=== PATIENT | male | born 1945 | race Caucasian/White ===

== ENCOUNTER → 2022-03-29 14:56 | Outpatient (BNVA) | payer MEDICARE, SELFPAY | PROVIDERS: PCP Family Medicine; Visit Provider Psychiatry & Neurology Neurology | DX: G20 Parkinson's disease (principal); Z79.899 Other long term (current) drug therapy | CPT/HCPCS: 99202 ==

== ENCOUNTER → 2022-09-27 14:22 | Outpatient (BNVA) | payer MEDICARE, SELFPAY | PROVIDERS: PCP Family Medicine; Visit Provider Psychiatry & Neurology Neurology | DX: G20 Parkinson's disease (principal) | CPT/HCPCS: 99212 ==

== ENCOUNTER 2023-04-04 13:48 | Outpatient (AMB) | payer MEDICARE, SELFPAY ==
--- NOTE | 2023-04-04 14:12 | MHC.OFFVIS ---
Intake Vital Signs 04/04/23 14:13 Height 5 ft 11 in Weight 250 lb BMI 34.9 BP 132/70 Blood Pressure Location Rt brachial Position Sitting Respiration 16 Pulse 64 Pulse Source Pulse Oximeter Pulse Oximetry (%) 98 Oxygen Delivery Method Room Air Intake Visit Reasons: 6 mnth f/u - LVM Intake Note: Pt presents to the office for a 6 month follow up for Parkinson's disease. Veterinarian Epidemiologist Required: No Allergies aspirin Allergy (Mild, Verified 04/04/23 14:13) Unknown ibuprofen Allergy (Mild, Verified 04/04/23 14:13) Unknown Penicillins Allergy (Mild, Verified 04/04/23 14:13) Unknown Medication List - Last Reconciled 04/04/23 by Shruti Garza MD ascorbic acid (vitamin C) mg PO carbidopa-levodopa 25-100 mg 1 tab at 10am, 4pm, 2 tabs at 1pm 7pm 10 pm and 1 extra as needed in the middle of the night ( 3am) cholecalciferol (vitamin D3) 10 mcg PO DAILY rasagiline 1 mg PO DAILY 90 days trihexyphenidyl 2 mg PO DAILY 90 days HPI HPI Comments History of Present Illness Details 77y/o male right handed male with Parkinsons disease comes for follow up. he was doin well but recently noticed that his tremors increased at night. I added an extra tablet at 10 pm and extra as needed at 3 am He was diagnosed with parkinsons disease 8 years ago when he presented with right leg tremors No cognitive issues Sleep- once in a while he talks . Mood- anxious more often Motivation- good. He cleans , he exercises in his bike 20 minutes a day. He has drooling mostly at night Speech- softer No swallowing issues He is slower in using utensils He has difficulty dressing. He can shower and good with personal hygiene. He has trouble turning in bed- uses silk sheets Gait is slower and mild balance issues. No falls Bowel movements regular No dizziness No hallucinations No vertigo , diplopia PFSH Surgical History H/O: vasectomy H/O inguinal hernia repair H/O cataract extraction Family History Father Diabetes Social History (Reviewed 04/04/23 @ 14:17 by JONATHAN Mccormack Alcohol intake: current Alcohol intake frequency: a few times a week Patient Tobacco Use Status: Former Tobacco user Quit Date: 1994 Physical Exam Vital Signs: Last Vital Signs Pulse 64 04/04/23 14:13 Resp 16 04/04/23 14:13 BP 132/70 04/04/23 14:13 Pulse Ox 98 04/04/23 14:13 Oxygen Delivery Method Room Air 04/04/23 14:13 BMI result Body Mass Index 34.9 Const General: cooperative, healthy appearing and comfortable Nutritional Appearance: obese Orientation/consciousness: patient oriented x3 Eyes Pupils: Equal, round and reactive pupils present Neuro Other: No tremors today FFM and foot taps mildly decreased virgil R>L Head tilted to right Mild hypophonia Mild stoop, No arm swing on right, shorter stride on right General: patient oriented x3, tone normal and moves all extremities Cranial nerves: Yes CN's II-XII intact bilaterally, Yes Facial sensation intact/muscles of mastication intact, Yes Equal, round and reactive pupils present, Yes Bilaterally intact EOM present, Yes Nystagmus not present, Yes Normal facial strength present and Yes Symmetric palate elevation present Cognition (Neuro): normal cognition Motor exam (neuro): 5/5 motor strength present throughout Psych Appearance: grossly normal Mental Status: mental status grossly normal Assessment & Plan Assessment & Plan (1) Parkinson's disease: Comment: Tremor predominant Code(s): G20 - Parkinson's disease Plan sinemet 25/100 1tab at 10am,4pm 2tabs at 1pm and7pm , 10pm 1 extra tablet in the middle of the night rasagiline 1mg qd Trihexyphenidyl 2mg qam Suggested wedge pillow and a bed rail to help change positions . Orders: Orders PT Evaluation and Treatment Today G20 - Parkinson's disease Medications: Changed From carbidopa-levodopa 25-100 mg 1 tab at 10am, 4pm, 10pm 2 tabs at 1pm 7pm 630 tabs 3RF To carbidopa-levodopa 25-100 mg 1 tab at 10am, 4pm, 2 tabs at 1pm 7pm 10 pm and 1 extra as needed in the middle of the night ( 3am) 700 tabs 3RF Coding Level of Care Code Est Pt Level 4 (32933) Diagnoses Parkinson's disease G20
[2023-04-04 14:13] VITALS: BP 132/70; PULSE 64; RESP 16; O2SAT 98; BMI 34.9
== END 2023-04-04 14:55 | disposition home or self-care (01) ==
PROVIDERS: PCP Family Medicine; Visit Provider Psychiatry & Neurology Neurology
DX: G20.A1 Parkinson's disease without dyskinesia, without mention of fluctuations (principal)
CPT/HCPCS: 99214

== ENCOUNTER → 2023-04-04 13:48 | Outpatient (BNVA) | payer MEDICARE, SELFPAY | PROVIDERS: PCP Family Medicine; Visit Provider Psychiatry & Neurology Neurology | DX: G20.A1 Parkinson's disease without dyskinesia, without mention of fluctuations (principal) | CPT/HCPCS: 99212 ==

== ENCOUNTER 2023-10-03 15:19 | Outpatient (AMB) | payer MEDICARE, SELFPAY ==
--- NOTE | 2023-10-03 15:25 | MHC.OFFVIS ---
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 Required: No Allergies aspirin Allergy (Mild, Verified 10/03/23 15:26) Unknown ibuprofen Allergy (Mild, Verified 10/03/23 15:26) Unknown Penicillins Allergy (Mild, Verified 10/03/23 15:26) Unknown Medication List - Last Reconciled 10/03/23 by Shruti Garza MD ascorbic acid (vitamin C) mg PO carbidopa-levodopa 25-100 mg 1 tab at 10am, 4pm, 2 tabs at 1pm 7pm 10 pm and 1 extra as needed in the middle of the night ( 3am) cholecalciferol (vitamin D3) 10 mcg PO DAILY gabapentin 100 mg PO BEDTIME PRN rasagiline 1 mg PO DAILY 90 days trihexyphenidyl 2 mg PO DAILY 90 days HPI Comments Details: 78y/o male right handed male with Parkinsons disease comes for follow up.He had a fall and had right hip fracture 3 months ago and has hip placement.He is doing better now and uses walker at night . He did PT for hip and did well He was diagnosed with parkinsons disease 9 years ago when he presented with right leg tremors No cognitive issues Sleep- once in a while he talks . Mood- anxious more often Motivation- good. He cleans , he exercises in his bike 20 minutes a day. He has drooling mostly at night Speech- softer No swallowing issues He is slower in using utensils He has difficulty dressing. He can shower and good with personal hygiene. He has trouble turning in bed- uses silk sheets Gait is slower and mild balance issues. Bowel movements regular No dizziness No hallucinations No vertigo , diplopia [facility] Medical History (Updated 10/03/23 @ 15:59 by Shruti Garza MD) Parkinson's disease without dyskinesia Surgical History History of hip replacement H/O: vasectomy H/O inguinal hernia repair H/O cataract extraction Family History Father Diabetes Social History Alcohol intake: current Alcohol intake frequency: a few times a week Patient Tobacco Use Status: Former Tobacco user Physical Exam Vital Signs: Last Vital Signs Pulse 57 10/03/23 15:26 Resp 16 10/03/23 15:26 BP 136/72 10/03/23 15:26 Pulse Ox 97 10/03/23 15:26 Oxygen Delivery Method Room Air 10/03/23 15:26 BMI result Body Mass Index 35.1 Const General: cooperative, healthy appearing and comfortable Nutritional Appearance: obese Orientation/consciousness: patient oriented x3 Eyes Pupils: Equal, round and reactive pupils present Neuro Other: High Amplitude rest tremors in right hand FFM and foot taps mildly decreased virgil R>L Head tilted to right Mild hypophonia Mild stoop, No arm swing on right, shorter stride on right General: patient oriented x3, tone normal and moves all extremities Cranial nerves: Yes CN's II-XII intact bilaterally, Yes Facial sensation intact/muscles of mastication intact, Yes Equal, round and reactive pupils present, Yes Bilaterally intact EOM present, Yes Nystagmus not present, Yes Normal facial strength present and Yes Symmetric palate elevation present Cognition (Neuro): normal cognition Motor exam (neuro): 5/5 motor strength present throughout Psych Appearance: grossly normal Mental Status: mental status grossly normal Assessment & Plan Assessment & Plan (1) Parkinson's disease without dyskinesia: Code(s): G20.A1 - Parkinson's disease without dyskinesia, without mention of fluctuations Category: Medical Plan sinemet 25/100 1tab at 10am,4pm 2tabs at 1pm and7pm , 10pm 1 extra tablet in the middle of the night rasagiline 1mg qd Trihexyphenidyl 2mg 1/2 tab bid Gabapentin 100mg qhs Suggested wedge pillow and a bed rail to help change positions . PT for gait training Discussed about DBS Orders: Orders PT Evaluation and Treatment Today Shruti Garza MD G20 - Parkinson's disease Medications: Changed From gabapentin 100 mg PO BEDTIME 30 days 30 caps 1RF To gabapentin 100 mg PO BEDTIME PRN Grisel Acosta, [employer] Coding Level of Care Code Est Pt Level 4 (83011) Complex EM visit Add On G2211 Diagnoses Parkinson's disease without dyskinesia G20.A1
[2023-10-03 15:26] VITALS: BP 136/72; PULSE 57; RESP 16; O2SAT 97; BMI 35.1
== END 2023-10-03 16:15 | disposition home or self-care (01) ==
PROVIDERS: PCP Family Medicine; Visit Provider Psychiatry & Neurology Neurology
DX: G20.A1 Parkinson's disease without dyskinesia, without mention of fluctuations (principal)
CPT/HCPCS: 99214; G2211

== ENCOUNTER → 2023-10-03 15:19 | Outpatient (BNVA) | payer MEDICARE, SELFPAY | PROVIDERS: PCP Family Medicine; Visit Provider Psychiatry & Neurology Neurology | DX: G20.A1 Parkinson's disease without dyskinesia, without mention of fluctuations (principal) | CPT/HCPCS: 99212 ==

== ENCOUNTER 2024-03-30 13:23 | Outpatient (AMB) | payer MEDICARE, SELFPAY ==
--- NOTE | 2024-03-30 13:26 | MHC.OFFVIS ---
Vital Signs 03/30/24 13:27 Height 5 ft 11 in Weight 256 lb BMI 35.7 Intake Visit Reasons: 6 mon follow up Intake Note: Patient presents for 6 month follow up Allergies aspirin Allergy (Mild, Verified 03/30/24 13:28) Unknown ibuprofen Allergy (Mild, Verified 03/30/24 13:28) Unknown Penicillins Allergy (Mild, Verified 03/30/24 13:28) Unknown HPI Comments Details: 78y/o male right handed male with Parkinsons disease comes for follow up.He had 2 falls since last visit . He tripped on the stairs . He was diagnosed with parkinsons disease 9 years ago when he presented with right leg tremors No cognitive issues He is doing PT now and it has helped him a lot. Sleep- once in a while he talks . Mood- anxious more often Motivation- good. He cleans , he exercises in his bike 20 minutes a day and stretching. He has drooling mostly at night Speech- softer No swallowing issues He is slower in using utensils He has difficulty dressing. He can shower and good with personal hygiene. He has trouble turning in bed- uses silk sheets Gait is slower and mild balance issues. Bowel movements regular No dizziness No hallucinations No vertigo , diplopia He is very nervous today. [facility] Medical History Parkinson's disease without dyskinesia Surgical History History of hip replacement H/O: vasectomy H/O inguinal hernia repair H/O cataract extraction Family History Father Diabetes Social History Alcohol intake: current Alcohol intake frequency: a few times a week Patient Tobacco Use Status: Former Tobacco user Physical Exam Vital Signs: BMI result Body Mass Index 35.7 Const General: cooperative, healthy appearing and comfortable Nutritional Appearance: obese Orientation/consciousness: patient oriented x3 Neuro Other: High Amplitude rest tremors in right hand FFM and foot taps mildly decreased virgil R>L Head tilted to right Mild hypophonia Mild stoop, No arm swing on right, shorter stride on right General: patient oriented x3, tone normal and moves all extremities Cognition (Neuro): normal cognition Motor exam (neuro): 5/5 motor strength present throughout Psych Appearance: grossly normal Mental Status: mental status grossly normal Assessment & Plan Assessment & Plan (1) Parkinson's disease without dyskinesia: Code(s): G20.A1 - Parkinson's disease without dyskinesia, without mention of fluctuations Category: Medical Qualifiers: Fluctuating manifestations: with fluctuating manifestations Qualified Code(s): G20.A2 - Parkinson's disease without dyskinesia, with fluctuations Plan sinemet 25/100 1tab at 10am,4pm 2tabs at 1pm and7pm , 10pm 1 extra tablet in the middle of the night rasagiline 1mg qd Trihexyphenidyl 2mg 1 tab qhs Gabapentin 100mg qhs Suggested wedge pillow and a bed rail to help change positions . continue PT for gait training Discussed about DBS Coding Level of Care Code Est Pt Level 4 (02071) Complex EM visit Add On G2211 Diagnoses Parkinson's disease without dyskinesia, with fluctuating manifestations G20.A2 Fluctuating manifestations: with fluctuating manifestations
[2024-03-30 13:27] VITALS: BMI 35.7
--- OUTSIDE RECORDS SUMMARY | 2024-04-04 09:38 | XMS_ITS | Data Portability ---
Author Organization [place] [facility], [facility] Address [address] [place] [address] Care Team Providers Care Surveyor Helper Rod Name Role Phone DOVLISANDRANA Primary Care Provider Assessment Encounter Date Assessment Date Assessment LastModified by Organization Details LastModified Time 08/29/2023 08/29/2023 Assessment: Pt demonstrates improved mobility, strength and gait. Plan: Continue with PT with focus on improving ROM, strength, functional mobility, and balance. scourchesne Not available 08/29/2023 14:18:37 08/31/2023 08/31/2023 Assessment: Pt demonstrates improved mobility, strength and gait. Plan: Continue with PT with focus on improving ROM, strength, functional mobility, and balance. scourchesne Not available 08/31/2023 15:02:58 09/05/2023 09/05/2023 Assessment: Pt demonstrates improved mobility, strength and gait with PT. Tried advancing sit<--->stands to lower chair, but pt was unable to perform with this change. Plan: Continue with PT x2 more visits and then discharge to (I) HEP. mgiovaninni Not available 09/05/2023 15:24:41 09/07/2023 09/07/2023 Assessment: Pt with improved tolerance/endura nce for ther ex today vs. last visit. Pt with good understanding of exercises for HEP. Plan: Continue PT x1 more visit and then discharge pt to (I) HEP. mgiovaninni Not available 09/07/2023 16:08:45 09/13/2023 09/13/2023 Assessment: Pt with improved tolerance/endura nce for ther ex today vs. last visit. Pt with good understanding of exercises for HEP. Plan: Discharge pt to (I) HEP. scourchesne Not available 09/13/2023 13:20:26 Plan of Treatment Reminders Order Date Submit Date Provider Last Modified By Organization Details Last Modified Time Details Appointments None record ed. Lab None record ed. Referral None record ed. Procedures None record ed. Surgeries None record ed. Imaging None record ed. Medication Orders None record ed. Patient Targets Encounter Date Encounter Id Patient Goals Patient Target Last Modified By Organization Details Last Modified Time ST) Pt to amb community distances with cane and pain scourchesne Not available 08/29/2023 13:35:42 ST) Pt to amb community distances with cane and pain scourchesne Not available 08/31/2023 15:02:59 ST) Pt to amb community distances with cane and pain mgiovaninni Not available 09/05/2023 10:34:35 ST) Pt to amb community distances with cane and pain mgiovaninni Not available 09/06/2023 13:44:52 ST) Pt to amb community distances with cane and pain scourchesne Not available 09/13/2023 09:32:12 Patient InstructionsNo instructions recorded. Reason for Referral None Reported. Results Created Date Observation Date Name Description Value Unit Range Abnormal Flag Note LastModifiedBy Organization Detail LastModifiedTime 12/23/19 24 06/23/2023 imagi ng/di agnos tic resul t No observ ation record ed. [email or web address] Not Available 11/25 22:08:54 12/23/19 24 06/23/2023 imagi ng/di agnos tic resul t No observ ation record ed. [email or web address] Not Available 11/25 22:08:56 Result Notes None recorded. 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 Procedures Surgical History Date Name Laterality Status Provider Name and Address Organization Details Recorded Time 4 57812 Therapeutic Exercise (1:1) completed Joe Jackson, PT [address], [place], [address], [facility] 09/13/2023 09:32:12 4 35847 Therapeutic Exercise (1:1) completed Dagmar Ann, SLEEVE IRONER [address], [place], [address], [facility] 09/06/2023 13:44:52 4 88362 Therapeutic Exercise (1:1) completed Dagmar Ann, SLEEVE IRONER [address], [place], [address], [facility] 09/05/2023 10:34:35 4 47659 Therapeutic Exercise (1:1) completed Joe Jackson, PT [address], [place], [address], [facility] 08/31/2023 15:02:58 4 59454 Therapeutic Exercise (1:1) completed Joe Jackson, PT [address], [place], [address], [facility] 08/29/2023 13:35:42 4 58463 Therapeutic Exercise (1:1) completed Dagmar Ann, SLEEVE IRONER [address], [place], [address], [facility] 08/24/2023 11:07:25 4 14393 Therapeutic Exercise (1:1) completed Dagmar Ann, SLEEVE IRONER [address], [place], [address], [facility] 08/22/2023 17:21:11 4 99174 Therapeutic Exercise (1:1) completed Dagmar Ann, SLEEVE IRONER [address], [place], [address], [facility] 08/17/2023 15:04:21 4 08963 Therapeutic Exercise (1:1) completed Dagmar Ann, SLEEVE IRONER [address], [place], [address], [facility] 08/12/2023 15:00:48 4 08555 Therapeutic Exercise (1:1) completed Joe Jackson, PT [address], [place], [address], [facility] 08/11/2023 14:49:08 4 06399 Therapeutic Exercise (1:1) completed Joe Jackson, PT [address], [place], [address], [facility] 08/09/2023 14:49:57 4 34699: Low complexity PT Eval completed Joe Jackson, PT [address], [place], [address], [facility] 08/09/2023 14:50:04 Imaging Results Imaging Date Name Status LastModified by Organiz ation Details LastModified Time 06/23/2023 imaging/diag nostic result completed Information not available 12/23/2023 22:08:54 06/23/2023 imaging/diag nostic result completed Information not available 12/23/2023 22:08:56 Procedure Notes None recorded. Medical Equipment None Reported. Allergies Allergen ID Allergen Name Allergen Category Reaction Reaction Severity Criticality Documentation Date Start Date Code Code System Note Provider Name and Address Organization Details Recorded Time 545993 Medicinal product containin g penicilli n and acting as antibacte rial agent (product) medicatio n hives Not available high 07/05/2023 73997 05 SNOMED KENIA GIANG-M EJIA null, [facility] 4 14:11:02 153780 Advil medicatio n hives Not available Not available 07/05/2023 17900 0 RxNorm KENIA GIANG-M EJIA d[place], [facility] 4 14:11:24 928715 aspirin medicatio n hives Not available low 07/05/2023 1191 RxNorm KENIA REX duncan [place] [facility] 14:11:49 Medications Name Sig Start Date Stop Date Status Note LastModified by Organization Details LastModified Time ofloxacin 0.3 % eye drops PUT 1 DROP IN AFFECTED EYE 3 TIMES A DAY DIRECTED BEGINNING DAY AFTER SURGERY, TAPER DIRECTED active Not Available Not Available No t Available prednisolone acetate 1 % eye drops,suspens ion PUT 1 DROP IN AFFECTED EYE 3 TIMES A DAY DIRECTED BEGINNING DAY AFTER SURGERY TAPER DIRECTED active Not Available Not Available No t Available tamsulosin 0.4 mg capsule TAKE 1 CAPSULE BY MOUTH AT BEDTIME active Not Available Not Available No t Available pantoprazole 40 mg tablet,delaye d release TAKE 1 TABLET BY MOUTH EVERY DAY active Not Available Not Available No t Available gabapentin 100 mg capsule TAKE 1 CAPSULE BY MOUTH AT BEDTIME active Not Available Not Available No t Available trihexyphenid yl 2 mg tablet TAKE 1 TABLET BY MOUTH DAILY FOR 90 DAYS active Not Available Not Available No t Available carbidopa 25 mg-levodopa 100 mg tablet TAKE 1 TAB AT 10AM&4PM.T SILVINO 2 TABS AT 1PM,7PM&10 PM.TAKE 1 TAB NEEDED IN MIDDLE OF NIGHT (3AM) active Not Available Not Available No t Available atropine 1 % eye drops PUT 1 DROP IN AFFECTED EYE TWICE A DAY DIRECTED BEGINNING DAY AFTER SURGERY TAPER DIRECTED active Not Available Not Available No t Available rasagiline 1 mg tablet TAKE 1 TABLET BY MOUTH EVERY DAY active Not Available Not Available No t Available Eliquis 2.5 mg tablet TAKE 1 TABLET BY MOUTH TWICE A DAY . STOP AFTER LAST DOSE ON Tuesday07/21/23 active Not Available Not Available No t Available Vitals None Recorded Social History None recorded. Functional Status None recorded. Mental Status None recorded. Family History Nothing Reported. Medical History No medical history recorded. Past Encounters Encounter ID Performer Location Encounter Start Date Encounter Closed Date Diagnosis/Indication Diagnosis SNOMED-CT Code Diagnosis ICD10 Code [id number] [facility] [address] [place] [address] 07/05/2023 13:58:05 07/25/2023 11:12:10 History of right hip replacement [id number] 693990 Z96.210 [id number] MD Veronica Rashid 2[address] [place] [address] 08/02/2023 14:04:38 08/23/2023 11:33:55 History of total replacement of right hip joint 4377031883 11556 Z96.909 [id number] Joe Jackson , PT [facility] [address] [facility] [place] [address] 08/09/2023 13:19:03 08/09/2023 13:43:14 Follow-up orthopedic assessment 379779102 Z47.1 History of total replacement of right hip joint 1840030502 30345 Z96.839 [id number] Joe Jackson , PT [facility] [address] [facility] [place] [address] 08/11/2023 13:52:35 08/11/2023 14:41:03 Follow-up orthopedic assessment 863160362 Z47.1 History of total replacement of right hip joint 1879882451 61388 Z96.860 [id number] Joe Jackson , PT [facility] [address] [facility] [place] [place] [address] 08/15/2023 16:18:48 08/15/2023 16:42:01 Follow-up orthopedic assessment 418724645 Z47.1 History of total replacement of right hip joint 2066596720 01860 Z96.842 [id number] Joe Jackson , PT [facility] [address] [facility] [place] [place] [address] 08/17/2023 14:59:26 08/17/2023 15:18:20 Follow-up orthopedic assessment 717009592 Z47.1 History of total replacement of right hip joint 5327337088 98590 Z96.144 [id number] Joe Jackson , PT [facility] [address] [facility] [place] [address] 08/22/2023 15:23:09 08/22/2023 16:27:18 Follow-up orthopedic assessment 025277111 Z47.1 History of total replacement of right hip joint 2542757579 11271 Z96.547 [id number] Joe Jackson , PT [facility] [address] [place] [address] 08/25/2023 13:54:05 08/25/2023 14:43:31 Follow-up orthopedic assessment 657844313 Z47.1 History of total replacement of right hip joint 1704184932 23786 Z96.639 [id number] Joe Jackson , PT [facility] [address] [place] [address] 08/29/2023 13:23:21 08/29/2023 14:37:02 Follow-up orthopedic assessment 283424297 Z47.1 History of total replacement of right hip joint 5522815437 99185 Z96.569 [id number] Joe Jackson , PT [facility] [address] [place] [address] 08/31/2023 14:57:54 08/31/2023 16:12:06 Follow-up orthopedic assessment 330582555 Z47.1 History of total replacement of right hip joint 6574558325 89205 Z96.670 [id number] Joe Jackson , PT [facility] [address] [place] [address] 09/05/2023 13:18:54 09/05/2023 14:44:27 Follow-up orthopedic assessment 461080571 Z47.1 History of total replacement of right hip joint 4316663116 53217 Z96.640 [id number] Joe Jackson , PT [facility] [address] [place] [address] 09/07/2023 14:57:51 09/07/2023 15:28:41 Follow-up orthopedic assessment 518994197 Z47.1 History of total replacement of right hip joint 0763744290 31382 Z96.954 [id number] Joe Jackson , PT [facility] [address] [place] [address] 09/13/2023 12:53:12 09/13/2023 13:24:59 Follow-up orthopedic assessment 222972037 Z47.1 History of total replacement of right hip joint 6110297572 36589 Z96.641 Health Concerns Section Related Observation LastModified by Organization Detai ls LastModified Time None Recorded Concern Status LastModified by Organization Details LastModified Time None Recorded Advance Directives Directive None Recorded Payers Encounter Date Sequence Insurance Name Policy Number Policy Sparks Covered Member ID Sparks Member ID Guarantor Name 08/29/2023 1 [facility] (MEDICARE REPLACEMENT PPO) [id number] Mickey Maldonado [id number] Mickey Maldonado 08/31/2023 1 [place] PPO) [id number] Mickey Maldonado [id number] Mickey Maldonado 09/05/2023 1 [facility] PPO) [id number] Mickey Maldonado [id number] Mickey Maldonado 09/07/2023 1 [place] PPO) [id number] Mickey Maldonado [id number] Mickey Maldonado 09/13/2023 1 [place] PPO) [id number] Mickey Maldonado [id number] Mickey Maldonado Notes Date Note Type Note Provider Name and Address Organization Details Recorded Time 08/29/2023 text/html Pt reports feeling much better overall and has noticed gains in strength and mobility Joe Jackson, PT [address], [place], [address], [facility] 08/29/2023 14:19:50 08/31/2023 text/html Pt reports feeling much better overall and has noticed gains in strength and mobility Joe Jackson, PT [address], [place], [address], [facility] 08/31/2023 16:35:33 09/05/2023 text/html Pt reports he knew when he woke up this morning that it was going to be a rough day with his Parkinson's. Pt states his hip feels great. Dagmar Ann, SLEEVE IRONER [address], [place], [address], [facility] 09/05/2023 15:25:06 09/07/2023 text/html Pt reports he is feeling generally better than the other day, and that his hip continues to feel great. Dagmar Ann, SLEEVE IRONER [address], [place], [address], [facility] 09/07/2023 16:09:08 09/13/2023 text/html Pt reports he is feeling a little more stiff today, but overall feels better. Joe Jackson, PT [address], [place], [address], [facility] 09/13/2023 13:40:33
== END 2024-03-30 14:18 | disposition home or self-care (01) ==
PROVIDERS: PCP Family Medicine; Visit Provider Psychiatry & Neurology Neurology
DX: G20.A2 Parkinson's disease without dyskinesia, with fluctuations (principal)
CPT/HCPCS: 99214; G2211

== ENCOUNTER → 2024-03-30 13:23 | Outpatient (BNVA) | payer MEDICARE, SELFPAY | PROVIDERS: PCP Family Medicine; Visit Provider Psychiatry & Neurology Neurology | DX: G20.A2 Parkinson's disease without dyskinesia, with fluctuations (principal) | CPT/HCPCS: 99212 ==

== ENCOUNTER 2024-05-08 14:00 | Outpatient (RCR) | payer MEDICARE, SELFPAY ==
[2023-10-20 07:16] VITALS: BP 138/60; PULSE 57; O2SAT 97
== END 2025-01-17 14:57 | disposition home or self-care (01) ==
LOC: HO.PTWFD 14:00
PROVIDERS: PCP Internal Medicine; Visit Provider Psychiatry & Neurology Neurology
DX: G20.A1 Parkinson's disease without dyskinesia, without mention of fluctuations (principal)
CPT/HCPCS: 97110; 97116; 97140; 97162; 97530

== ENCOUNTER 2024-09-27 14:39 | Outpatient (AMB) | payer MEDICARE, SELFPAY ==
[2024-09-27 14:46] VITALS: BP 120/60; PULSE 58; O2SAT 95; BMI 35.1
--- NOTE | 2024-09-27 14:46 | MHC.OFFVIS ---
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 He can shower, dress by himself . But after 4 Pm and 7 Pm dose. - he has GI issues, more freezing and slows down .Needs help with his ADLS. No falls but has nera falls. . He was diagnosed with parkinsons disease 9 years ago when he presented with right leg tremors No cognitive issues He is doing PT now and it has helped him a lot. Sleep- once in a while he talks . Mood- anxious more often Motivation- good. He cleans , he exercises in his bike 20 minutes a day and stretching. Speech- softer No swallowing issues He can shower and good with personal hygiene. He has trouble turning in bed- uses silk sheets Gait is slower and mild balance issues. Bowel movements regular No dizziness No hallucinations No vertigo , diplopia PFSH Medical History Parkinson's disease without dyskinesia Surgical History History of hip replacement H/O: vasectomy H/O inguinal hernia repair H/O cataract extraction Family History Father Diabetes Social History Alcohol intake: current Alcohol intake frequency: a few times a week Patient Tobacco Use Status: Former Tobacco user Physical Exam Vital Signs: Last Vital Signs Pulse 58 09/27/24 14:46 BP 120/60 09/27/24 14:46 Pulse Ox 95 09/27/24 14:46 Oxygen Delivery Method Room Air 09/27/24 14:46 BMI result Body Mass Index 35.1 Const General: cooperative, healthy appearing and comfortable Nutritional Appearance: obese Orientation/consciousness: patient oriented x3 Neuro Other: intermittent mod Amplitude rest tremors in right hand FFM and foot taps mildly decreased virgil R>L Head tilted to right Mild hypophonia Mild stoop, No arm swing on right, shorter stride on right General: patient oriented x3, tone normal and moves all extremities Cognition (Neuro): normal cognition Motor exam (neuro): 5/5 motor strength present throughout Psych Appearance: grossly normal Mental Status: mental status grossly normal Assessment & Plan Assessment & Plan (1) Parkinson's disease without dyskinesia: Code(s): G20.A1 - Parkinson's disease without dyskinesia, without mention of fluctuations Category: Medical Qualifiers: Fluctuating manifestations: with fluctuating manifestations Qualified Code(s): G20.A2 - Parkinson's disease without dyskinesia, with fluctuations Plan Increase sinemet 25/100 1tab at 10am,2tabs at 1pm 4 pm and7pm , 10pm PATIENT WILL BE A GOOD CANDIDATE FOR VYALEV rasagiline 1mg qd Trihexyphenidyl 2mg 1 tab qhs Gabapentin 100mg qhs wedge pillow and a bed rail to help change positions . PT Orders: Orders PT Evaluation and Treatment Today G20.A2 - Parkinson's disease without dyskinesia, with fluctuations Medications: Changed From carbidopa-levodopa 25-100 mg 1 tab at 10am, 4pm, 2 tabs at 1pm 7pm 10 pm and 1 extra as needed in the middle of the night ( 3am) 810 tabs 3RF To carbidopa-levodopa 25-100 mg 1 tab at 10am 2 tabs at 1pm 4 PM 7pm 10 pm 810 tabs 3RF Coding Level of Care Code Est Pt Level 4 (60452) Complex EM visit Add On G2211 Diagnoses Parkinson's disease without dyskinesia, with fluctuating manifestations G20.A2 Fluctuating manifestations: with fluctuating manifestations
--- OUTSIDE RECORDS SUMMARY | 2024-09-27 17:16 | XMS_ITS | Data Portability ---
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 Procedures Surgical History Date Name Laterality Status Provider Name and Address Organization Details Recorded Time 4 60730 Therapeutic Exercise (1:1) completed Joe Jackson, PT [address], [place], [address], [facility] 09/13/2023 09:32:12 4 01086 Therapeutic Exercise (1:1) completed Dagmar Ann, BOBBIN DISKER [address], [place], [address], [facility] 09/06/2023 13:44:52 4 92577 Therapeutic Exercise (1:1) completed Dagmar Ann, BOBBIN DISKER [address], [place], [address], [facility] 09/05/2023 10:34:35 4 10020 Therapeutic Exercise (1:1) completed Joe Jackson, PT [address], [place], [address], [facility] 08/31/2023 15:02:58 4 11115 Therapeutic Exercise (1:1) completed Joe Jackson, PT [address], [place], [address], [facility] 08/29/2023 13:35:42 4 21072 Therapeutic Exercise (1:1) completed Dagmar Ann, BOBBIN DISKER [address], [place], [address], [facility] 08/24/2023 11:07:25 4 08068 Therapeutic Exercise (1:1) completed Dagmar Ann, BOBBIN DISKER [address], [place], [address], [facility] 08/22/2023 17:21:11 4 23392 Therapeutic Exercise (1:1) completed Dagmar Ann, BOBBIN DISKER [address], [place], [address], [facility] 08/17/2023 15:04:21 4 92449 Therapeutic Exercise (1:1) completed Dagmar Ann, BOBBIN DISKER [address], [place], [address], [facility] 08/12/2023 15:00:48 4 89900 Therapeutic Exercise (1:1) completed Joe Jackson, PT [address], [place], [address], [facility] 08/11/2023 14:49:08 4 44541 Therapeutic Exercise (1:1) completed Joe Jackson, PT [address], [place], [address], [facility] 08/09/2023 14:49:57 4 37824: Low complexity PT Eval completed Joe Jackson, PT [address], [place], [address], [facility] 08/09/2023 14:50:04 Imaging Results None recorded. Procedure Notes None recorded. Medical Equipment None Reported. Allergies Allergen ID Allergen Name Allergen Category Reaction Reaction Severity Criticality Documentation Date Start Date Code Code System Note Provider Name and Address Organization Details Recorded Time 617654 Product containin g penicilli n (product) medicatio n hives Not available high 07/05/2023 27550 8001 SNOMED KENIA GIANG-M JADEIA [facility], [facility] 4 14:11:02 124543 Advil medicatio n hives Not available Not available 07/05/2023 79084 0 RxNorm KENIA GIANG-M EJIA [facility], [facility] 4 14:11:24 662356 aspirin medicatio n hives Not available low 07/05/2023 1191 RxNorm KENIA GIANG-M EJIA [facility], [facility] 4 14:11:49 Medications Name Sig Start Date Stop [...] Diagnosis/Indication Diagnosis SNOMED-CT Code Diagnosis ICD10 Code Diagnosis Note [id number] LOI Mcnair [address] [place] [address] 07/05/2023 13:58:05 07/25/2023 11:12:10 History of right hip replacement [id number] 946774 Z96.913 [id number] MD Roxann aRshid 2nd floor [address] [place] [address] 08/02/2023 14:04:38 08/23/2023 11:33:55 History of total replacement of right hip joint 4349221594 59367 Z96.024 [id number] Joe Jackson , PT [facility] [address] [place] [address] 08/09/2023 13:19:03 08/09/2023 13:43:14 Follow-up orthopedic assessment 469135269 Z47.1 History of total replacement of right hip joint 9706628001 22189 Z96.163 [id number] Joe Jackson , PT [facility] [address] [place] [address] 08/11/2023 13:52:35 08/11/2023 14:41:03 Follow-up orthopedic assessment 712298313 Z47.1 History of total replacement of right hip joint 8682966369 89849 Z96.714 [id number] Dagmar Ann , BOBBIN DISKER [facility] [address] [place] [address] 08/15/2023 16:18:48 08/15/2023 16:42:01 Follow-up orthopedic assessment 338991546 Z47.1 History of total replacement of right hip joint 8705476157 79613 Z96.774 [id number] Dagmar Ann , BOBBIN DISKER [facility] [address] [place] [address] 08/17/2023 14:59:26 08/17/2023 15:18:20 Follow-up orthopedic assessment 408363503 Z47.1 History of total replacement of right hip joint 1886369006 18982 Z96.792 [id number] Dagmar Ann , BOBBIN DISKER [facility] [address] [place] [address] 08/22/2023 15:23:09 08/22/2023 16:27:18 Follow-up orthopedic assessment 006815948 Z47.1 History of total replacement of right hip joint 9465674304 75091 Z96.141 [id number] Dagmar Ann , BOBBIN DISKER [facility] [address] [place] [address] 08/25/2023 13:54:05 08/25/2023 14:43:31 Follow-up orthopedic assessment 209359033 Z47.1 History of total replacement of right hip joint 0299952984 02706 Z96.573 [id number] Joe Jackson , PT [facility] [address] [place] [address] 08/29/2023 13:23:21 08/29/2023 14:37:02 Follow-up orthopedic assessment 820357375 Z47.1 History of total replacement of right hip joint 1297880522 69080 Z96.397 [id number] Joe Jackson , PT [facility] [address] [place] [address] 08/31/2023 14:57:54 08/31/2023 16:12:06 Follow-up orthopedic assessment 763966709 Z47.1 History of total replacement of right hip joint 8325758810 58433 Z96.043 [id number] Dagmar Ann , BOBBIN DISKER [facility] [address] [place] [address] 09/05/2023 13:18:54 09/05/2023 14:44:27 Follow-up orthopedic assessment 281912045 Z47.1 History of total replacement of right hip joint 2551608884 95873 Z96.758 [id number] Dagmar Ann , BOBBIN DISKER [facility] [address] [place] [address] 09/07/2023 14:57:51 09/07/2023 15:28:41 Follow-up orthopedic assessment 660109157 Z47.1 History of total replacement of right hip joint 3025858466 11988 Z96.861 [id number] Joe Renetta , PT [facility] [address] [place] [address] 09/13/2023 12:53:12 09/13/2023 13:24:59 Follow-up orthopedic assessment 534361680 Z47.1 History of total replacement of right hip joint 2537881462 83420 Z96.641 Health Concerns Section Related Observation LastModified by Organization Detai ls LastModified Time None Recorded Concern Status LastModified by Organization Details LastModified Time None Recorded Advance Directives Directive None Recorded Payers Encounter Date Sequence Insurance Name Policy Number Policy Sparks Covered Member ID Sparks Member ID Guarantor Name 08/29/2023 1 [place] PPO) [id number] Mickey Maldonado [id number] Mickey Maldonado 08/31/2023 1 [place]) [id number] Mickey Maldonado [id number] Mickey [place] 09/05/2023 1 [place]PO) [id number] Mickey Maldonado [id number] Mickey [place] 09/07/2023 1 [place]) [id number] Mickey Maldonado [id number] Mickey Maldonado 09/13/2023 1 [place]) [id number] Mickey Maldonado [id number] Mickey Maldonado Notes Date Note Type Note Provider Name and Address Organization Details Recorded Time 08/29/2023 text/html Pt reports feeling much better overall and has noticed gains in strength and mobility Joe Jackson, PT [address], [place], [address], [facility] 08/29/2023 14:19:50 08/31/2023 text/html Pt reports feeling much better overall and has noticed gains in strength and mobility Joe Jackson, PT [address], [place], [address], [facility] 08/31/2023 16:35:33 09/05/2023 text/html Pt reports he knew when he woke up this morning that it was going to be a rough day with his Parkinson's. Pt states his hip feels great. Dagmar Ann, BOBBIN DISKER [address], [place], [address], [facility] 09/05/2023 15:25:06 09/07/2023 text/html Pt reports he is feeling generally better than the other day, and that his hip continues to feel great. Dagmar Ann, BOBBIN DISKER [address], [place], [address], [facility] 09/07/2023 16:09:08 09/13/2023 text/html Pt reports he is feeling a little more stiff today, but overall feels better. Joe Jackson, PT [address], [place], [address], [facility] 09/13/2023 13:40:33
== END 2024-09-27 15:17 | disposition home or self-care (01) ==
LOC: HO.HSMS 14:40
PROVIDERS: PCP Internal Medicine; Visit Provider Psychiatry & Neurology Neurology
DX: G20.A2 Parkinson's disease without dyskinesia, with fluctuations (principal)
CPT/HCPCS: 99214; G2211

== ENCOUNTER → 2024-09-27 14:39 | Outpatient (BNVA) | payer MEDICARE, SELFPAY | PROVIDERS: PCP Internal Medicine; Visit Provider Psychiatry & Neurology Neurology | DX: G20.A2 Parkinson's disease without dyskinesia, with fluctuations (principal) | CPT/HCPCS: 99212 ==

== ENCOUNTER 2024-10-11 13:46 | Outpatient (AMB) | payer MEDICARE, SELFPAY ==
--- NOTE | 2024-10-11 13:54 | MHC.PC.OV ---
Vital Signs 10/11/24 13:56 Height 5 ft 8.9 in Weight 249 lb 8 oz BMI 36.9 BP 130/72 Blood Pressure Location Lt brachial Position Sitting Pulse 58 Pulse Source Pulse Oximeter Temp 97.3 F Temp Source Temporal Artery Scan Pulse Oximetry (%) 98 Oxygen Delivery Method Room Air Intake Visit Reasons: establish care Intake Note: Patient is a new patient here to establish care for Parkinson's disease. Transferring care from Dr Blake ([facility]). Medical records have been requested and have not received. Lumite Injector Required: No Combat Systems Operator: Present Accompanied by: Spouse Allergies aspirin Allergy (Mild, Verified 10/11/24 13:55) Unknown ibuprofen Allergy (Mild, Verified 10/11/24 13:55) Unknown Penicillins Allergy (Mild, Verified 10/11/24 13:55) Unknown Medication List - Last Reconciled 10/11/24 by Casey Osorio MD ascorbic acid (vitamin C) mg PO carbidopa-levodopa 25-100 mg 1 tab at 10am 2 tabs at 1pm 4 PM 7pm 10 pm cholecalciferol (vitamin D3) 10 mcg PO DAILY gabapentin 100 mg PO BEDTIME 30 days rasagiline 1 mg PO DAILY 90 days trihexyphenidyl 2 mg PO DAILY 90 days Tobacco use date assessed: 10/11/24 Fall risk assessment: No Falls in past year Last assessed Fall Risk: 10/11/24 Dental Screening Dental Screen Date: 10/11/24 Did you have a dental visit in the last 12 months?: No Did you have a dental problem in the last 6 months where you did not have access to dental care?: No Was dental information given to patient?: Patient has dentist [facility] Medical History Parkinson's disease without dyskinesia Surgical History History of hip replacement H/O: vasectomy H/O inguinal hernia repair H/O cataract extraction Family History Father Diabetes Social History Housing: Condominium Alcohol intake: current Alcohol intake frequency: does not drink Patient Tobacco Use Status: Former Tobacco user e-Cigarette/Vaping Use: Never Used Second Hand Smoke Exposure: Yes service: No Current occupational status: retired Cognitive needs: Yes (Cane, Walker) Hearing needs: No Vision needs: Yes (Glasses) Questionnaire PHQ-9 Over the last 2 weeks, how often have you been bothered by any of the following problems? 1. Little interest or pleasure in doing things: not at all 2. Feeling down, depressed, or hopeless: not at all 3. Trouble falling or staying asleep, or sleeping too much: not at all 4. Feeling tired or having little energy: not at all 5. Poor appetite or overeating: not at all 6. Feeling bad about yourself - or that you are a failure or have let yourself or your family down: not at all 7. Trouble concentrating on things, such as reading the newspaper or watching television: not at all 8. Moving or speaking so slowly that other people could have noticed. Or the opposite - being so fidgety or restless that you have been moving around a lot more than usual: not at all 9. Thoughts that you would be better off or of hurting yourself in some way: not at all Total score: 0 Depression Screening Interpretation: Negative Depression Screening Done: Yes Source: Developed by Drs. Rachid Skinner, Mare Padron, Papito Cheng and colleagues, with an educational cresencio from [employer]. Thrive Questionnaire Date Thrive assessed: 10/04/24 I am a: Patient What is your living situation today?: I have a steady place to live Within the past 12 months, did the food you bought not last and you didn't have the money to get more?: Never true Within the past 12 months, did you worry whether your food would run out before you got money to buy more?: Never true Do you have trouble paying for medicines?: No Do you have trouble getting transportation to medical appointments?: No Do you have trouble paying your heating and electricity bill?: No Do you have trouble taking care of your child, family member or friend?: No Do you have trouble with day-to-day activities such as bathing, preparing meals, shopping, managing finances, etc.?: No Are you currently unemployed and looking for a job?: No Are you interested in more education?: No Please select the resources that you would like help with: None Currently or been in a relationship where the following occur: No concerns reported THRIVE Score: 0 AUDIT C Alcohol Use Questionnaire (AUDIT-C) 1. How often do you have a drink containing alcohol?: Monthly or less 2. How many drinks containing alcohol do you have on a typical day when you are drinking?: 1 or 2 3. How often do you have six or more drinks on one occasion?: Never Total Score: 1 CAROL-7 AMB Questionnaire CAROL-7 Date CAROL - 7 assessed: 10/11/24 Feeling nervous, anxious, or on edge: 1 = Several days Not being able to stop or control worryin = Not at all Worrying too much about different things: 0 = Not at all Trouble relaxin = Not at all Being so restless that it is hard to sit still: 0 = Not at all Becoming easily annoyed or irritable: 0 = Not at all Feeling afraid as if something awful might happen: 0 = Not at all Total CAROL-7 score (0-4 normal; 5-9 mild; 10-14 moderate; 15-21 severe): 1 Source: Developed by Drs. Rachid Skinner, Mare Padron, Papito Cheng and colleagues, with an educational cresencio from [employer]. Physical exam (Primary Care) Vital Signs: Last Vital Signs Temp 97.3 F 10/11/24 13:56 Pulse 58 10/11/24 13:56 BP 130/72 10/11/24 13:56 Pulse Ox 98 10/11/24 13:56 Oxygen Delivery Method Room Air 10/11/24 13:56 BMI result Body Mass Index 36.9 Tobacco/Smoking Status: Tobacco use Status Tobacco use date assessed 10/11/24 10/11/24 14:01 Patient Tobacco Use Status Former Tobacco user 10/11/24 14:07 e-Cigarette/Vaping Use Never Used 10/11/24 14:07 PHQ-9: PHQ-9 Score PHQ-9: Total score 0 10/11/24 14:01 Depression Screening Interpretation: Negative Thrive Assessment: Date of Thrive Assessment Date Thrive assessed 10/04/24 10/11/24 14:01 Currently or been in a relationship where the following occur: No concerns reported Advance Care Planning discussion: Exists, not on file Date of discussion: 10/11/24 Who was present: Patient Forms completed: Health Care Proxy and MOLST Time spent: 1-15 minutes, not on file Coding Level of Care Code New Pt Level 4 (09341) Complex EM visit Add On G2211 Diagnoses Parkinson's disease G20 Additional Codes Vital Signs *Quality* - Advance Care Planning discussion: Exists, not on file ([id number]) Vital Signs *Quality* - Time spent: 1-15 minutes, not on file ([id number]) Assessment & Plan Assessment & Plan (1) Parkinson's disease: Comment: Tremor predominant Code(s): G20 - Parkinson's disease Category: Medical Plan: Patient has had significant relief after triphenxhidyl has been added. Continue to follow up with the neurologist. Plan History of Present Illness - The patient is a 79-year-old male presenting with Parkinson's disease. - Parkinson's disease: The patient has been diagnosed with Parkinson's disease and is under the care of Dr. Henning, who has been adjusting his medications. - The patient reports improvement since the last medication adjustment, with a significant improvement noted since the summer. - He experiences nervousness, which exacerbates his tremors. 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 - He maintains an active lifestyle, going out daily and engaging in activities such as moving a refrigerator and vacuuming. Social History - The patient maintains an active lifestyle, going out daily and engaging in activities such as moving a refrigerator and vacuuming. - He sleeps in a chair downstairs until supervisor customer records division to manage his symptoms without disturbing his partner. Review of Systems - Neurological: Reports tremors exacerbated by nervousness, difficulty getting up from bed due to legs freezing up. - Musculoskeletal: Denies any other musculoskeletal concerns. Physical Exam General: Cooperative and healthy appearing Nutritional Appearance: Well nourished Orientation/consciousness: Patient oriented x3 Limitations: No limitations Head: Normal to inspection General: Appearance normal, both eyes and all related structures Neck: Normal visual inspection Chest: Normal palpation of entire chest wall Respiratory: N ormal respiratory effort Neurology: Patient oriented x3, Parkinson's disease noted with tremors due to nervousness. Patient reports legs freezing up, requiring assistance to initiate movement. Results Plan 1. Parkinson's Disease - Continue current medication regimen as adjusted by Dr. Henning. - Monitor for any changes in symptoms or side effects. - Encourage maintaining an active lifestyle to support mobility and overall health. - Routine blood work to be conducted to monitor overall health status. Discussion Notes I discussed with the patient the importance of continuing the current medication regimen as adjusted by Dr. Henning and monitoring for any changes in symptoms or side effects. We also talked about the benefits of maintaining an active lifestyle to support mobility and overall health. Routine blood work was recommended to monitor his overall health status. Patient Instructions - Continue taking your medications as prescribed by Dr. Henning. - Stay active by engaging in daily activities and exercises. - Report any new symptoms or side effects to your healthcare provider. - Complete the routine blood work as discussed.
[2024-10-11 13:56] VITALS: BP 130/72; PULSE 58; TEMP 36.3; O2SAT 98; BMI 36.9
--- OUTSIDE RECORDS SUMMARY | 2024-10-11 14:58 | XMS_ITS | Data Portability ---
Author Organization [place] - [facility], [facility] Address [address] [place] [address] Care Team Providers Care Crimper Assembler Name Role Phone DOVLISANDRANA Primary Care Provider [...] Modified By Organization Details Last Modified Time 08/29/[id number]) Pt to amb community distances with cane and pain scourchesne Not available 08/29/2023 13:35:42 08/31/[id number]) Pt to amb community distances with cane and pain scourchesne Not available 08/31/2023 15:02:59 09/05/[id number]) Pt to amb community distances with cane and pain mgiovaninni Not available 09/05/2023 10:34:35 09/07/[id number]) Pt to amb community distances with cane and pain mgiovaninni Not available 09/06/2023 13:44:52 09/13/[id number]) Pt to amb community distances with [...] total replacemen t of right hip joint [id number] 00 Active 2023 Loi Espinosa MD [address], [place], [address] , [facility] 16:07:30 Problem Notes None recorded. Procedures Surgical History Date Name Laterality Status Provider Name and Address Organization Details Recorded Time 4 68784 Therapeutic Exercise (1:1) completed Joe Jackson, PT [address], [place], [address], [facility] 09/13/2023 09:32:12 4 48459 Therapeutic Exercise (1:1) completed Dagmar Ann, [employer] MECHANIC [address], [place], [address], [facility] 09/06/2023 13:44:52 4 18923 Therapeutic Exercise (1:1) completed Dagmar Ann [employer] CONTR[employer] MECHANIC [address], [place], [address], [facility] 09/05/2023 10:34:35 4 93534 Therapeutic Exercise (1:1) completed Joe Jackson, PT [address], [place], [address], [facility] 08/31/2023 15:02:58 4 52677 Therapeutic Exercise (1:1) completed Joe Jackson, PT [address] [facility], [place], [address], [facility] 08/29/2023 13:35:42 4 26722 Therapeutic Exercise (1:1) completed Dagmar Ann, NICOLA [address], [place], [address], [facility] 08/24/2023 11:07:25 4 25643 Therapeutic Exercise (1:1) completed Dagmar Ann E[employer] CONTR[employer] MECHANIC [address], [place], [address], [facility] 08/22/2023 17:21:11 4 97166 Therapeutic Exercise (1:1) completed Dagmar Ann ELECT[employer] CONTR[employer] MECHANIC [address], [place], [address], [facility] 08/17/2023 15:04:21 4 35849 Therapeutic Exercise (1:1) completed Dagmar Ann, ELECTRONIC INDUSTRI[employer] CONTROL[employer] MECHANIC [address], [place], [address], [facility] 08/12/2023 15:00:48 4 51911 Therapeutic Exercise (1:1) completed Joe Jackson, PT [address], [place], [address], [facility] 08/11/2023 14:49:08 4 27750 Therapeutic Exercise (1:1) completed Joe Jackson, PT [address], [place], [address], [facility] 08/09/2023 14:49:57 4 74262: Low complexity PT Eval completed Joe Jackson, PT [address], [place], [address], [facility] 08/09/2023 14:50:04 Imaging Results None recorded. Procedure Notes None recorded. Medical Equipment None Reported. Allergies Allergen ID Allergen Name Allergen Category Reaction Reaction Severity Criticality Documentation Date Start Date Code Code System Note Provider Name and Address Organization Details Recorded Time 422266 Product containin g penicilli n (product) medicatio n hives Not available high 07/05/2023 98955 8001 SNOMED KNEIA GIANG-M EJIA [facility], [facility] 4 14:11:02 903467 Advil medicatio n hives Not available Not available 07/05/2023 91086 0 RxNorm KENIA GIANG-M EJIA [facility], [facility] 4 14:11:24 609286 aspirin medicatio n hives Not available low 07/05/2023 1191 RxNorm KENIA GIANG-M EJIA null, [facility] 4 14:11:49 Medications Name Sig Start Date [...] SNOMED-CT Code Diagnosis ICD10 Code Diagnosis Note [id number] LOI Mcnair [address] [place] [address] 07/05/2023 13:58:05 07/25/2023 11:12:10 History of right hip replacement [id number] 209097 Z96.515 [id number] MD Veronica Rashid 2nd floor [address] [place] [address] 08/02/2023 14:04:38 08/23/2023 11:33:55 History of total replacement of right hip joint 7465897209 97791 Z96.600 [id number] Joe Renetta , PT [facility] [address] [place] [address] 08/09/2023 13:19:03 08/09/2023 13:43:14 Follow-up orthopedic assessment 344653989 Z47.1 History of total replacement of right hip joint 0298779448 82186 Z96.463 [id number] Joe Renetta , PT [facility] [address] [place] [address] 08/11/2023 13:52:35 08/11/2023 14:41:03 Follow-up orthopedic assessment 618617148 Z47.1 History of total replacement of right hip joint 9994561054 73744 Z96.918 [id number] Dagmar Ann , [employer] MECHANIC [facility] [address] [place] [address] 08/15/2023 16:18:48 08/15/2023 16:42:01 Follow-up orthopedic assessment 168678129 Z47.1 History of total replacement of right hip joint 7409179083 37359 Z96.752 [id number] Dagmar Ann , E[employer] MECHANIC [facility] [address] [place] [address] 08/17/2023 14:59:26 08/17/2023 15:18:20 Follow-up orthopedic assessment [id number] Z47.1 History of total replacement of right hip joint 6373666664 93845 Z96.695 [id number] Dagmar Ann , E[employer] MECHANIC [facility] [address] [place] [address] 08/22/2023 15:23:09 08/22/2023 16:27:18 Follow-up orthopedic assessment 171903504 Z47.1 History of total replacement of right hip joint 8211875289 66548 Z96.894 [id number] Dagmar Ann , E[employer] MECHANIC [facility] [address] [place] [address] 08/25/2023 13:54:05 08/25/2023 14:43:31 Follow-up orthopedic assessment 689247748 Z47.1 History of total replacement of right hip joint 2207766040 56277 Z96.505 [id number] Joe Jackson , PT [facility] [address] [place] [address] 08/29/2023 13:23:21 08/29/2023 14:37:02 Follow-up orthopedic assessment 580008568 Z47.1 History of total replacement of right hip joint 8019732931 93406 Z96.926 [id number] Joe Jackson , PT [facility] [address] [place] [address] 08/31/2023 14:57:54 08/31/2023 16:12:06 Follow-up orthopedic assessment 520613453 Z47.1 History of total replacement of right hip joint 4385692642 07297 Z96.898 [id number] Dagmar Ann , E[employer] MECHANIC [facility] [address] [place] [address] 09/05/2023 13:18:54 09/05/2023 14:44:27 Follow-up orthopedic assessment 159602336 Z47.1 History of total replacement of right hip joint 7108576624 65271 Z96.037 [id number] Dagmar Ann , [employer] MECHANIC [facility] [address] [place] [address] 09/07/2023 14:57:51 09/07/2023 15:28:41 Follow-up orthopedic assessment 513876644 Z47.1 History of total replacement of right hip joint 6205859660 31369 Z96.803 [id number] Joe Jackson , PT [facility] [address] [place] [address] 09/13/2023 12:53:12 09/13/2023 13:24:59 Follow-up orthopedic assessment 564346507 Z47.1 History of total replacement of right hip joint 8214381613 17577 Z96.641 Health Concerns Section Related Observation LastModified by Organization Detai ls LastModified Time None Recorded Concern Status LastModified by Organization Details LastModified Time None Recorded Advance Directives Directive None Recorded Payers Insurance Date Sequence Insurance Name Policy Number Policy Sparks Covered Member ID Sparks Member ID Guarantor Name 09/11/2023 1 [facility]: MEDICARE PPO BLUE (MEDICARE REPLACEMENT PPO) [id number] Mickey Kwoksubhash [id number] Mickey Maldonado Notes Date Note Type Note Provider Name and Address Organization Details Recorded Time 08/29/2023 text/html Pt reports feeling much better overall and has noticed gains in strength and mobility Joe Jackson, PT [address], [place], [address], [facility] 08/29/2023 14:19:50 08/31/2023 text/html Pt reports feeling much better overall and has noticed gains in strength and mobility Joe Jackson, PT [address], [place], [address], [facility] 08/31/2023 16:35:33 09/05/2023 text/html Pt reports he knew when he woke up this morning that it was going to be a rough day with his Parkinson's. Pt states his hip feels great. Dagmar Ann, E[employer] MECHANIC [address], [place], [address], [facility] 09/05/2023 15:25:06 09/07/2023 text/html Pt reports he is feeling generally better than the other day, and that his hip continues to feel great. Dagmar Ann, ELECT[employer]USTRI[employer] CONTR[employer] MECHANIC [address], [place], [address], [facility] 09/07/2023 16:09:08 09/13/2023 text/html Pt reports he is feeling a little more stiff today, but overall feels better. Joe Jackson, PT [address], [place], [address], [facility] 09/13/2023 13:40:33
== END 2024-10-11 14:27 | disposition home or self-care (01) ==
LOC: HO.HMCH 13:46
PROVIDERS: PCP Internal Medicine; Visit Provider Internal Medicine
DX: G20.B2 Parkinson's disease with dyskinesia, with fluctuations (principal); Z00.00 Encounter for general adult medical examination without abnormal findings

== ENCOUNTER → 2024-10-11 13:46 | Outpatient (BNVA) | payer MEDICARE, SELFPAY | PROVIDERS: PCP Internal Medicine; Visit Provider Internal Medicine | DX: G20.A1 Parkinson's disease without dyskinesia, without mention of fluctuations (principal) | CPT/HCPCS: 96127; 99202 ==

== ENCOUNTER 2024-10-15 10:27 | Outpatient (REF) | payer MEDICARE, SELFPAY ==
--- OUTSIDE RECORDS SUMMARY | 2024-10-15 11:40 | XMS_ITS | Data Portability ---
Author Organization [place] - [facility], [facility] Address [address] [place] [address] Care Team Providers Care Unit Manager Name Role Phone JAMESON MONAE Primary Care Provider Assessment Encounter Date Assessment [...] By Organization Details Last Modified Time 08/29/[id number]) Pt to amb community distances with cane and pain scourchesne Not available 08/29/2023 13:35:42 08/31/[id number]) Pt to amb community distances with cane and pain scourchesne Not available 08/31/2023 15:02:59 09/05/[id number]) Pt to amb community distances with cane and pain mgiovaninni Not available 09/05/2023 10:34:35 09/07/[id number]) Pt to amb community distances with cane and pain mgiovaninni Not available 09/06/2023 13:44:52 09/13/[id number]) Pt to amb community distances with [...] total replacemen t of right hip joint 5820386744025 00 Active 2023 Loi Espinosa MD [address] [facility] [address], [place], [address] , [facility] 04/09/202 4 16:07:30 Problem Notes None recorded. Procedures Surgical History Date Name Laterality Status Provider Name and Address Organization Details Recorded Time 4 35434 Therapeutic Exercise (1:1) completed Joe Jackson, PT [address], [place], [address], [facility] 09/13/2023 09:32:12 4 28141 Therapeutic Exercise (1:1) completed Dagmar Ann, FIBERGLASS FABRICATOR [address], [place], [address], [facility] 09/06/2023 13:44:52 4 28466 Therapeutic Exercise (1:1) completed Dagmar Ann, FIBERGLASS FABRICATOR [address], [place], [address], [facility] 09/05/2023 10:34:35 4 72344 Therapeutic Exercise (1:1) completed Joe Jackson, PT [address], [place], [address], [facility] 08/31/2023 15:02:58 4 55296 Therapeutic Exercise (1:1) completed Joe Jackson, PT [address], [place], [address], [facility] 08/29/2023 13:35:42 4 66714 Therapeutic Exercise (1:1) completed Dagmar Ann, FIBERGLASS FABRICATOR [address], [place], [address], [facility] 08/24/2023 11:07:25 4 22121 Therapeutic Exercise (1:1) completed Dagmar Ann, FIBERGLASS FABRICATOR [address], [place], [address], [facility] 08/22/2023 17:21:11 4 61224 Therapeutic Exercise (1:1) completed Dagmar Ann, FIBERGLASS FABRICATOR [address], [place], [address], [facility] 08/17/2023 15:04:21 4 58377 Therapeutic Exercise (1:1) completed Dagmar Ann, FIBERGLASS FABRICATOR [address], [place], [address], [facility] 08/12/2023 15:00:48 4 19137 Therapeutic Exercise (1:1) completed Joe Jackson, PT [address], [place], [address], [facility] 08/11/2023 14:49:08 4 58198 Therapeutic Exercise (1:1) completed Joe Jackson, PT [address], [place], [address], [facility] 08/09/2023 14:49:57 4 63286: Low complexity PT Eval completed Joe Jackson, PT [address], [place], [address], [facility] 08/09/2023 14:50:04 Imaging Results None recorded. Procedure Notes None recorded. Medical Equipment None Reported. Allergies Allergen ID Allergen Name Allergen Category Reaction Reaction Severity Criticality Documentation Date Start Date Code Code System Note Provider Name and Address Organization Details Recorded Time 148838 Product containin g penicilli n (product) medicatio n hives Not available high 07/05/2023 70479 8001 SNOMED KENIA GIANG-M EJIA [facility], [facility] 4 14:11:02 080153 Advil medicatio n hives Not available Not available 07/05/2023 68760 0 RxNorm KENIA GIANG-M EJIA [facility], [facility] 4 14:11:24 468028 aspirin medicatio n hives Not available low 07/05/2023 1191 RxNorm KENIA GIANG-M EJIA null, [facility] 4 14:11:49 Medications Name Sig [...] SNOMED-CT Code Diagnosis ICD10 Code Diagnosis Note [id number] LOI Mcnair [address]st [address] [place] [address] 07/05/2023 13:58:05 07/25/2023 11:12:10 History of right hip replacement 8972298238 808469 Z96.312 [id number] MD Veronica Rashid 2nd floor [address] [place] [address] 08/02/2023 14:04:38 08/23/2023 11:33:55 History of total replacement of right hip joint 1255789564 85574 Z96.223 [id number] Joe Renetta , PT [facility] [address] [place] [address] 08/09/2023 13:19:03 08/09/2023 13:43:14 Follow-up orthopedic assessment 408593233 Z47.1 History of total replacement of right hip joint 0097625532 23642 Z96.599 [id number] Joe Renetta , PT [facility] [address] [place] [address] 08/11/2023 13:52:35 08/11/2023 14:41:03 Follow-up orthopedic assessment 224296617 Z47.1 History of total replacement of right hip joint 2334187118 28914 Z96.206 [id number] Dagmar Strattondieter , FIBERGLASS FABRICATOR [facility] [address] [place] [address] 08/15/2023 16:18:48 08/15/2023 16:42:01 Follow-up orthopedic assessment 361121670 Z47.1 History of total replacement of right hip joint 1245158878 58031 Z96.192 [id number] Dagmar Ann , FIBERGLASS FABRICATOR [facility] [address] [place] [address] 08/17/2023 14:59:26 08/17/2023 15:18:20 Follow-up orthopedic assessment 047026942 Z47.1 History of total replacement of right hip joint 7674695635 48007 Z96.620 [id number] Dagmar Ann , FIBERGLASS FABRICATOR [facility] [address] [place] [address] 08/22/2023 15:23:09 08/22/2023 16:27:18 Follow-up orthopedic assessment 456649369 Z47.1 History of total replacement of right hip joint 1720877776 37306 Z96.135 [id number] Dagmar Mcneilmarco a , FIBERGLASS FABRICATOR [facility] [address] [place] [address] 08/25/2023 13:54:05 08/25/2023 14:43:31 Follow-up orthopedic assessment 436380413 Z47.1 History of total replacement of right hip joint 9724096195 06993 Z96.354 [id number] Joe Jackson , PT [facility] [address] [place] [address] 08/29/2023 13:23:21 08/29/2023 14:37:02 Follow-up orthopedic assessment 624561405 Z47.1 History of total replacement of right hip joint 4402329869 72998 Z96.369 [id number] Joe Jackson , PT [facility] [address] [place] [address] 08/31/2023 14:57:54 08/31/2023 16:12:06 Follow-up orthopedic assessment 630844740 Z47.1 History of total replacement of right hip joint 0353115691 21280 Z96.495 [id number] Dagmar Ann , FIBERGLASS FABRICATOR [facility] [address] [place] [address] 09/05/2023 13:18:54 09/05/2023 14:44:27 Follow-up orthopedic assessment 430410157 Z47.1 History of total replacement of right hip joint 1682417726 92666 Z96.984 [id number] Dagmar Ann , FIBERGLASS FABRICATOR [facility] [address] [place] [address] 09/07/2023 14:57:51 09/07/2023 15:28:41 Follow-up orthopedic assessment 684492395 Z47.1 History of total replacement of right hip joint 1154046137 31134 Z96.831 [id number] Joe Jackson , PT [facility] [address] [place] [address] 09/13/2023 12:53:12 09/13/2023 13:24:59 Follow-up orthopedic assessment 415473488 Z47.1 History of total replacement of right hip joint 2981842932 79435 Z96.641 Health Concerns Section Related Observation LastModified by Organization Geovannaai ls LastModified Time None Recorded Concern Status LastModified by Organization Details LastModified Time None Recorded Advance Directives Directive None Recorded Payers Insurance Date Sequence Insurance Name Policy Number Policy Sparks Covered Member ID Sparks Member ID Guarantor Name 09/11/2023 1 [facility]: MEDICARE PPO BLUE (MEDICARE REPLACEMENT PPO) [id number] Mickey Kwoksubhash [id number] Mickey Maldonado Notes Date Note Type Note Provider Name and Address Organization Details Recorded Time 08/29/2023 text/html Pt reports feeling much better overall and has noticed gains in strength and mobility Joe Jackson, PT [address], [place], [address], [facility] 08/29/2023 14:19:50 08/31/2023 text/html Pt reports feeling much better overall and has noticed gains in strength and mobility Joe Jackson, PT [address], [place], [address], [facility] 08/31/2023 16:35:33 09/05/2023 text/html Pt reports he knew when he woke up this morning that it was going to be a rough day with his Parkinson's. Pt states his hip feels great. Dagmar Ann, FIBERGLASS FABRICATOR [address], [place], [address], [facility] 09/05/2023 15:25:06 09/07/2023 text/html Pt reports he is feeling generally better than the other day, and that his hip continues to feel great. Dagmar Ann, FIBERGLASS FABRICATOR [address], [place], [address], [facility] 09/07/2023 16:09:08 09/13/2023 text/html Pt reports he is feeling a little more stiff today, but overall feels better. Joe Jackson, PT [address], [place], [address], [facility] 09/13/2023 13:40:33
[2024-10-15 13:48] LABS: Hematocrit 38.5 % (42.0-52.0); Hemoglobin 12.8 g/dl (14.0-18.0); Mean Corpuscular HGB Conc 33.2 g/dl (31.0-36.0); Mean Corpuscular Hemoglobin 33.3 pg (27.0-33.0); Mean Corpuscular Volume 100.3 fL (80.0-98.0); Mean Platelet Volume 10.5 fL (9.4-12.4); Platelet Count 241 X10*3/uL (160-400); Red Blood Count 3.84 X10*6/uL (4.60-5.80); Red Cell Distribution Width 13.3 % (11.0-16.0); White Blood Count 6.9 X10*3/uL (4.8-10.8)
[2024-10-15 14:00] LABS: Color Urine Yellow; Glucose Urine UA Negative (Negative); Leukocyte Esterase Urine Negative (Negative); Nitrite Urine Negative (Negative); Specific Gravity - Urine 1.015 (1.005-1.025); Urine Blood Negative (Negative); Urine Ketones Negative (Negative); Urine Protein Negative (Neg-Trace)
[2024-10-15 14:01] LABS: Appearance Urine Clear
[2024-10-15 14:16] LABS: Alanine Aminotransferase < 6 U/L (0-40); Albumin Level 3.8 g/dL (3.5-5.0); Alkaline Phosphatase 80 U/L (39-117); Anion Gap 10 (12-20); Aspartate Amino Transferase 27 U/L (5-37); Bilirubin Direct 0.2 mg/dL (0.0-0.5); Bilirubin Total 0.6 mg/dL (0.0-1.0); Blood Urea Nitrogen 17 mg/dL (9-16); Calcium 8.7 mg/dL (8.4-10.2); Carbon Dioxide 25 mmol/L (22-29); Chloride 110 mmol/L (96-108); Cholesterol 122 mg/dL (<200); Estimated Glomerular Filt Rate > 60; Glucose Random 101 mg/dL (60-115); HDL Cholesterol 38 mg/dL (>40); LDL Cholesterol Calculated 72 mg/dL (<100); Potassium 4.2 mmol/L (3.3-5.1); Sodium 141 mmol/L (135-145); Total Protein 6.8 g/dL (6.5-8.0); Triglycerides 60 mg/dL (<150)
[2024-10-15 14:31] LABS: Thyroid Stimulating Hormone 2.44 uIU/mL (0.32-4.0)
== END 2024-10-15 10:28 | disposition home or self-care (01) ==
LOC: HO.WFDLDS 10:27
PROVIDERS: Visit Provider Internal Medicine
DX: G20.A1 Parkinson's disease without dyskinesia, without mention of fluctuations (principal)
CPT/HCPCS: 36415; 80048; 80061; 80076; 81003; 84443; 85027

== ENCOUNTER 2025-03-13 13:18 | Outpatient (AMB) | payer MEDICARE, SELFPAY ==
--- OUTSIDE RECORDS SUMMARY | 2025-03-12 12:15 | XMS_ITS | Encounter Summary ---
Author Organization [facility] Address [address] [facility] [address] [place] [phone] Phone Care Team Providers Care Facilities Maintenance Engineer Name Role Phone Casey Osorio MD Primary Care Provid er Reason for Visit * Auth/Cert (Routine) Specialty Diagnoses / Procedures Referred By Silvana tinajero Referred To Contact Referral ID Status Reason Start Date Expiration Date Visits Re quested Visits Authorized [id number] 1 1 Encounter Details Date Type Department Care Team ([facility] Contact Info) Description 03/12/2025 12:15 PM EST Home Care Visit [facility] [address] [place], [place] [phone] Lizeth Crump, OT [address] [place] [address] [email or web address] OT EVALUATION Social History Tobacco Use Types [...] Care Team (Late st Contact Info) Description 03/14/2025 12:00 PM EST Appointment [facility] [address] [place] [phone] Lizeth Crump, OT [address] [place] [address] 03/14/2025 12:45 PM EST Appointment [facility] [address] [place] [phone] Sandi Euceda RN [address] [place] [address] 03/15/2025 12:30 PM EST Appointment [facility] [address] [place] [phone] oRse Vega, PT [address] [place] [address] 03/19/2025 12:00 PM EST Appointment [facility] [address] [place] [phone] Lizeth Crump, OT [address] [place] [address] 03/20/2025 2:00 AM EST Appointment [facility] [address] [place] [phone] Sandi Euceda, LURDES [address] [place] [address] 03/21/2025 1:30 AM EST Appointment [facility] [address] [place] [phone] Sandi Euceda, RN [address] [place] [address] 03/22/2025 10:15 AM EST Appointment [facility] [address] [place] [phone] Rose Vega, PT [address] [place] [address] 03/25/2025 Appointment [facility] [address] [place] [phone] Rose Vega, PT [address] [place] [address] 03/26/2025 12:45 AM EST Appointment [facility] [address] [place] [phone] Lizeth Crump, OT [address] [place] [address] 03/26/2025 1:30 AM EST Appointment [facility] [address] [place] [phone] Sandi Euceda, RN [address] [place] [address] 03/27/2025 1:30 AM EST Appointment [facility] [address] [place] [phone] Rose Vega, PT [address] [place] [address] 03/28/2025 1:00 AM EST Appointment [facility] [address] [place] [phone] Sandi Euceda, RN [address] [place] [address] 03/28/2025 1:30 AM EST Appointment [facility] [address] [place] [phone] Lizeth Crump, OT [address] [place] [address] 04/01/2025 12:45 AM EST Appointment [facility] [address] [place] [phone] Rose Vega, PT [address] [place] [address] 04/02/2025 1:30 AM EST Appointment [facility] [address] [place] [phone] Sandi Euceda, RN [address] [place] [address] 04/02/2025 12:00 PM EST Appointment [facility] [address] [place] [phone] Lizeth Crump, OT [address] [place] [address] 04/03/2025 Appointment [facility] [address] [place] [phone] Rose Vega, PT [address] [place] [address] 04/04/2025 1:00 AM EST Appointment [facility] [address] [place] [phone] Sandi Euceda, RN [address] [place] [address] 04/04/2025 12:00 PM EST Appointment [facility] [address] [place] [address] Lizeth Crump OT [address] [place] [address] 04/09/2025 1:30 AM EST Appointment [facility] [address] [place] [address] Sandi Euceda, LURDES [address] [place] [address] 04/11/2025 Appointment [facility] [address] [place] [phone] Sandi Euceda RN [address] [place] [address] 04/16/2025 2:30 AM EST Appointment [facility] [address] [place] [phone] Sandi Euceda RN [address] [place] [address] 04/18/2025 1:00 AM EST Appointment [facility] [address] [place] [phone] Sandi Euceda RN [address] [place] [address] 04/23/2025 1:30 AM EST Appointment [facility] [address] [place] [phone] Sandi Euceda RN [address] [place] [address] 04/25/2025 12:30 AM EST Appointment [facility] [address] [place] [phone] Sandi Euceda RN [address] [place] [address] [email or web address] documented as of this encounter Visit Diagnoses [...] medication errors and/or interactions Performed HH - Complete medication review every visit and [...] Performed documented in this encounter Care Teams Facilities Maintenance Engineer Relationship Specialty Start Date End Date Casey Osorio MD [address] [place] [phone] PCP - General Internal Medicine 01/24/25 documented as of this encounter Additional Source Comments The information contained in this document represents components of the legal health record. It is not the complete legal health record.[facility]
--- OUTSIDE RECORDS SUMMARY | 2025-03-12 13:00 | XMS_ITS | Encounter Summary ---
Author Organization [facility] Address [address] [facility] [address] [place] [phone] Phone Care Team Providers Care Family Service Worker Name Role Phone Casey Osorio MD Primary Care Provid er Reason for Visit * Auth/Cert (Routine) Specialty Diagnoses / Procedures Referred By Silvana tinajero Referred To Contact Referral ID Status Reason Start Date Expiration Date Visits Re quested Visits Authorized [id number] 1 1 Encounter Details Date Type Department Care Team ([facility] Contact Info) Description 03/12/2025 1:00 PM EST Home Care Visit [facility] [address], [place] [phone] Sandi Euceda, LURDES [address] [place] [address] [email or web address] SN HOME VISIT Social History Tobacco Use [...] EST Appointment [facility] [address] [place] [phone] Lizeth Crump, OT [address] [place] [address] 03/14/2025 12:45 PM EST Appointment [facility] [address] [place] [phone] Sandi Euceda RN [address] [place] [address] 03/15/2025 12:30 PM EST Appointment [facility] [address] [place] [phone] Rose Vega, PT [address] [place] [address] 03/19/2025 12:00 PM EST Appointment [facility] [address] [place] [phone] Lizeth Crump, OT [address] [place] [address] 03/20/2025 2:00 AM EST Appointment [facility] [address] [place] [phone] Sandi Eucead, LURDES [address] [place] [address] 03/21/2025 1:30 AM EST Appointment [facility] [address] [place] [phone] Sandi Euceda, RN [address] [place] [address] 03/22/2025 10:15 AM EST Appointment [facility] [address] [place] [phone] Rose Vega, PT [address] [place] [address] 03/25/2025 Appointment [facility] [address] [place] [phone] Rose Vega, PT [address] [place] [address] 03/26/2025 12:45 AM EST Appointment [facility] [address] [place] [phone] Lizeth Crump, OT [address] [place] [address] 03/26/2025 1:30 AM EST Appointment [facility] [address] [place] [phone] Sandi Euceda, RN [address] [place] [address] 03/27/2025 1:30 AM EST Appointment [facility] [address] [place] [phone] Rose Vega, PT [address] [place] [address] 03/28/2025 1:00 AM EST Appointment [facility] [address] [place] [address] Sandi Euceda, RN [address] [place] [address] 03/28/2025 1:30 AM EST Appointment [facility] [address] [place] [phone] Lizeth Crump, OT [address] [place] [address] 04/01/2025 12:45 AM EST Appointment [facility] [address] [place] [phone] Rose Vega, PT [address] [place] [address] 04/02/2025 1:30 AM EST Appointment [facility] [address] [place] [phone] Sandi Euceda, RN [address] [place] [address] 04/02/2025 12:00 PM EST Appointment [facility] [address] [place] [phone] Lizeth Crump, OT [address] [place] [address] 04/03/2025 Appointment [facility] [address] [place] [phone] Rose Vega, PT [address] [place] [address] 04/04/2025 1:00 AM EST Appointment [facility] [address] [place] [phone] Sandi Euceda, RN [address] [place] [address] 04/04/2025 12:00 PM EST Appointment [facility] [address] [place] [phone] Lizeth Crump OT [address] [place] [address] 04/09/2025 1:30 AM EST Appointment [facility] [address] [place] [phone] Sandi Euceda, LURDES [address] [place] [address] 04/11/2025 Appointment [facility] [address] [place] [phone] Sandi Euceda RN [address] [place] [address] 04/16/2025 2:30 AM EST Appointment [facility] [address] [place] [phone] Sandi Euceda RN [address] [place] [address] 04/18/2025 1:00 AM EST Appointment [facility] [address] [place] [phone] Sandi Euceda RN [address] [place] [address] 04/23/2025 1:30 AM EST Appointment [facility] [address] [place] [phone] Sandi Euceda RN [address] [place] [address] 04/25/2025 12:30 AM EST Appointment [facility] [address] [place] [phone] Sandi Euceda RN [address] [place] [address] [email or web address] documented as of this encounter Visit Diagnoses Not on filedocumented in this encounter Home Health Visit - Care Plan Visit Details Visit Type -SN HOME VISIT Discipline -Long Term Problems Problem Description Start Date Status Goals [...] HH - Complete fall risk assessment scale Problem: - Falls - Risk of Goal: - Knowledge and management of fall prevention [...] patient at high risk for a fall Problem: - Falls - Risk of Goal: - Knowledge and management of fall prevention measures. Performed HH - Assess vital signs, pulse oximetry, pain, and as indicated, orthostatic vital signs Description: use agency-specific parameters Problem: - Standard of Care Goal:HH - Achieve [...] Performed documented in this encounter Care Teams Family Service Worker Relationship Specialty Start Date End Date Casey Osorio MD [address] [place] [phone] PCP - General Internal Medicine 01/24/25 documented as of this encounter Additional Source Comments The information contained in this document represents components of the legal health record. It is not the complete legal health record.[facility]
--- OUTSIDE RECORDS SUMMARY | 2025-03-12 13:30 | XMS_ITS | Encounter Summary ---
Author Organization [facility] Address [address] [facility] [address] [place] [phone] Phone Care Team Providers Care Plexiglas Former Name Role Phone Casey Osorio MD Primary Care Provid er Reason for Visit * Auth/Cert (Routine) Specialty Diagnoses / Procedures Referred By Silvana tinajero Referred To Contact Referral ID Status Reason Start Date Expiration Date Visits Re quested Visits Authorized [id number] 1 1 Encounter Details Date Type Department Care Team ([facility] Contact Info) Description 03/12/2025 1:30 PM EST Home Care Visit [facility] [address] [place], [place] [phone] Megan Sanabria, PT [address] [place] [address] [email or web address] PT EVALUATION Social History Tobacco Use Types Packs/Day [...] Time Taken Comments Blood Pressure 140/80 03/12/2025 1:50 PM EST Pulse 55 03/12/2025 1:50 PM EST Temperature 36.5 C (97.7 F) 03/12/2025 1:50 PM EST Respiratory Rate 18 03/12/2025 1:50 PM EST Oxygen Saturation 95% 03/12/2025 1:50 PM EST Inhaled Oxygen Concentration - - Weight - - Height - - Body Mass Index - - documented in this encounter Plan of Treatment Upcoming Encounters Date Type Department Care Team (Late st Contact Info) Description 03/14/2025 12:00 PM EST Appointment [facility] [address] [place] [phone] Lizeth Crump, OT [address] [place] [address] 03/14/2025 12:45 PM EST Appointment [facility] [address] [place] [address] Sandi Euceda RN [address] [place] [address] 03/15/2025 12:30 PM EST Appointment [facility] [address] [place] [address] Rose Vega, PT [address] [place] [address] 03/19/2025 12:00 PM EST Appointment [facility] [address] [place] [address] Lizeth Crump, OT [address] [place] [address] 03/20/2025 2:00 AM EST Appointment [facility] [address] [place] [phone] Sandi Euceda, LURDES [address] [place] [address] 03/21/2025 1:30 AM EST Appointment [facility] [address] [place] [address] Sandi Euceda, RN [address] [place] [address] 03/22/2025 10:15 AM EST Appointment [facility] [address] [place] [phone] Rose Vega, PT [address] [place] [address] 03/25/2025 Appointment [facility] [address] [place] [phone] Rose Vega, PT [address] [place] [address] 03/26/2025 12:45 AM EST Appointment [facility] [address] [place] [address] Lizeth Crump, OT [address] [place] [address] 03/26/2025 1:30 AM EST Appointment [facility] [address] [place] [address] Sandi Euceda, RN [address] [place] [address] 03/27/2025 1:30 AM EST Appointment [facility] [address] [place] [address] Rose Vega, PT [address] [place] [address] 03/28/2025 1:00 AM EST Appointment [facility] [address] [place] [address] Sandi Euceda, RN [address] [place] [address] 03/28/2025 1:30 AM EST Appointment [facility] [address] [place] [address] Lizeth Crump, OT [address] [place] [address] 04/01/2025 12:45 AM EST Appointment [facility] [address] [place] [address] Rose Vega, PT [address] [place] [address] 04/02/2025 1:30 AM EST Appointment [facility] [address] [place] [phone] Sandi Euceda, RN [address] [place] [address] 04/02/2025 12:00 PM EST Appointment [facility] [address] [place] [address] Lizeth Crump, OT [address] [place] [address] 04/03/2025 Appointment [facility] [address] [place] [address] Rose Vega, PT [address] [place] [address] 04/04/2025 1:00 AM EST Appointment [facility] [address] [place] [address] Sandi Euceda, RN [address] [place] [address] 04/04/2025 12:00 PM EST Appointment [facility] [address] [place] [address] Lizeth Crump, OT [address] [place] [address] 04/09/2025 1:30 AM EST Appointment [facility] [address] [place] [address] Sandi Euceda, LURDES [address] [place] [address] 04/11/2025 Appointment [facility] [address] [place] [phone] Sandi Euceda RN [address] [place] [address] 04/16/2025 2:30 AM EST Appointment [facility] [address] [place] [phone] Sandi Euceda RN [address] [place] [address] 04/18/2025 1:00 AM EST Appointment [facility] [address] [place] [phone] Sandi Euceda, LURDES [address] [place] [address] 04/23/2025 1:30 AM EST Appointment [facility] [address] [place] [phone] Sandi Euceda RN [address] [place] [address] 04/25/2025 12:30 AM EST Appointment [facility] [address] [place] [phone] Sandi Euceda RN [address] [place] [address] [email or web address] documented as of this encounter Visit Diagnoses Not on filedocumented in this encounter Home Health Visit - Care Plan Visit Details Visit Type -PT EVALUATION Discipline -Physical Therapy Problems Problem Description Start Date Status [...] 1 goal linked to scheduled/document ed intervention 3 goal interventions scheduled/document ed in this visit HH - Pain Disciplines: All Active Home Health Disciplines 03/07/2025 Active 1 goal linked to scheduled/document ed intervention 1 goal intervention scheduled/document ed in this visit HH - Mobility and Activity Tolerance - Impaired Disciplines: Physical Therapy 03/12/2025 Active 1 goal linked to scheduled/document ed intervention 1 goal intervention scheduled/document ed in this visit Goals Goal [...] Planning - Knowledge of No HH - Knowledge and management [...] pain. HH - Pain No HH - Demonstrate maximum mobility and activity level for safe function Description: Patient will demonstrates understanding and ability to perform HEP with 90% accuracy so patient can continue program without direction after DC by 04/06/25 patient will demonstrate knowledge in fall prevention techniques so patient can remain safe at home by 04/06/25 Pt. will demonstrate transfers in and OOB as well as auto transfers including lifting leg so patient can independently transition from room to room by 04/06/25 Patient will demonstrate improved Ti netti score to > 20/28 demonstrating improved ambulation safety with gait at least 100' allowing patient to transition to Community mobility by 04/06/25 HH - Mobility and Activity Tolerance - Impaired No Interventions Intervention Associated Problem/Goal Status Variance Visit Notes HH - Complete medication review every visit and medication reconciliation as indicated. Pharmacy information: Description: med rec will be completed at each visit Problem:HH - Medication Management Goal:HH - Safe medication management, avoid unnecessary harm related to medication errors and/or interactions Performed HH - I/E medication management: administration, purpose, dosages, preparation, setup, scheduling, side effects, food/drug interactions, and potential complications as indicated Description: Update patient's copy of medication list as needed. Problem:HH - Medication Management Goal:HH - Safe medication management, avoid unnecessary harm related to medication errors and/or interactions Scheduled - Focus of care, teaching completed and plan for next visit Problem: - Focus of Care and Teaching Goal: - Communication and collaboration to achieve patient goals Performed Primary Clinical Focus this Visit & Instruction Provided: pt is a 79 yr old male with recent hospitalization with COVID and h/o Parkinson's DZ. Instruction Provided to: patient Response to Instruction/Teaching: Is partially able to teach back topics as evidenced by cues for stair negotiation and car transfers, cues to slow pace with mobility tasks for safety. Plan for Next Visit Specific Focus & Education Needed: gt transfers, assess bed mobility and stair negotiation to bedroom, hamstring stretches, balance re ed, home safety/fall prevention New Orders: PT 2w1, 1w1, 2w2 Updated Discharge Plan: by 04/06/25 with written HEP, may benefit from OP PT upon completion of HH services REFERRAL DX:Pt is a 79 y/o male with a hx of Parkinson who was recentl y tested positive for COVID and was hospitalized due to respiratory complications. Caregiver reported pt was treated in the hospital with I V antibiotics and was then transferred to a SNF due to c/o of generalized weakness. PAST MEDICAL HX: Parkinson's DZ, h/o falls PRIOR FUNCTIONAL STATUS (Including Bathing): used cane in home and walker in community, IND ADLs PATIENT CONCERNS: falls, weakness sciatica pain FALLS/SAFETY: h/o falls, high fall risk ENVIRONMENT/DME: lives with in 2 level mila e, 2 step access in garage with 2 rails, 1 FOS to 2nd level shower and bedroom, 1/2 bath on 1st level. has over the toilet commode, walker, cane, grab bar, shower bench FAMILY/CAREGIVER SUPPORT: very supportive INTERDISCIPLINARY: PT/OT/SN OBJ ECTIVE MEASURES;02/09/25 bed mobility Not assessed at pt too fatigued for negotiating steps to 2nd level bedroom transfers: sup and cues, takes increased time and effort to complete, uses chair with arms at kitchen table, sup from OTC in bathroom gt t rain: in home with FWW with close sup, Parkinson like gt, toe walks vs heel toe gt, pace too fast, poor foot clearance, flexed posture stairs: negotiated 2 steps to exit home via garage with 2 rails with CGA/close sup and cues, used cane and 1 rail Car transfers: sup and cues for proper and safe technique CLINICAL SUMMARY:Pt is a 79 yr old male with recent dx of Covid and h/o Parkinson's Dz. Pt presents with weakness, limited endurance, unsteady gt, fall risk, pain, impaired balance. Pt would benef it from skilled PT for strengthening, HEP, pain management, bed mobility and transfer training, gt training on level and stairs, car transfers, balance re ed, home safety and fall prevention to improve str/balance HH - I/E management of care in an urgent or emergency (ER) situation: When to call your Home Care Team/911, ER plans, supplies, evacuation, when to contact local ER officials and how to stay informed Problem:HH - Emergency Planning - Knowledge of Goal:HH - Knowledge of options for managing care in the event of an emergency related situation. Scheduled HH - Emergency planning assessment: the emergency plan, supplies needed, emergency contact numbers and an evacuation plan were reviewed Description: Patient and Caregiver is/are knowledgeable of emergency plans. Problem:HH - Emergency Planning - Knowledge of Goal:HH - Knowledge of options for managing care in the event of an emergency related situation. Scheduled HH - I/E fall prevention measures Description: [...] fall prevention measures. Performed HH - I/E discharge plan Problem:HH - Standard of Care Goal:HH - Achieve care management for a safe to home/community discharge from homecare Performed HH - Assess vital signs, pulse oximetry, pain, and as indicated, orthostatic vital signs Description: use agency-specific parameters Problem:HH - Standard of Care Goal:HH - Achieve care management for a safe to home/community discharge from homecare Scheduled HH - Assess skin integrity Problem:HH - Standard of Care Goal:HH - Achieve care management for a safe to home/community discharge from homecare Scheduled HH - Assess pain Problem: - Pain Goal:HH - Frequency of pain interfering with patient's activity or movement will improve with activity or movement by discharge. Performed HH - I/E therapeutic function/activity: Description: As indicated: activity promotion and management, functional mobility training, therapeutic exercise and home exercise program, device use. Problem:HH - Mobility and Activity Tolerance - Impaired Goal:HH - Demonstrate maximum mobility and activity level for safe function Performed documented in this encounter Care Teams Plexiglas Former Relationship Specialty Start Date End Date Casey Osorio MD [address] [place] [phone] PCP - General Internal Medicine 01/24/25 documented as of this encounter Additional Source Comments The information contained in this document represents components of the legal health record. It is not the complete legal health record.[facility]
--- NOTE | 2025-03-13 13:23 | MHC.PC.OV ---
Vital Signs 03/13/25 13:25 Height 5 ft 8.9 in Weight 233 lb 2 oz BMI 34.5 BP 138/62 Blood Pressure Location Lt brachial Position Sitting Pulse 71 Pulse Source Pulse Oximeter Temp 97.3 F Temp Source Temporal Artery Scan Pulse Oximetry (%) 96 Oxygen Delivery Method Room Air Intake Visit Reasons: [facility] 03/05 Intake Note: Patient is here for hospital discharge follow up. Patient was discharged from [facility] 02/20/25, [facility] on 03/05/25. Embroidery Worker Required: No Senior Designer/Art Director: Present Accompanied by: Daughter Allergies aspirin Allergy (Mild, Verified 03/13/25 13:25) Unknown ibuprofen Allergy (Mild, Verified 03/13/25 13:25) Unknown Penicillins Allergy (Mild, Verified 03/13/25 13:) Unknown Tobacco use date assessed: 03/13/25 Fall risk assessment: 2 + Falls in past year Last assessed Fall Risk: 03/13/25 Dental Screening Dental Screen Date: 10/11/24 HPI HPI Comments History of Present Illness Details History of Present Illness - The patient is a 79-year-old male presenting for a follow-up visit after a recent hospitalization. - He was hospitalized at [facility] for 19 days with COVID-19 pneumonia, followed by two weeks of rehabilitation at [facility], and was discharged home one week ago. - He has developed a rash on his right hip by a prior hip surgery incision. - The patient reports ongoing pain in his right leg, which radiates from the hip down the leg. - He was previously evaluated at [facility] and told it was lumbar sciatica, with a recommendation for pain management that was not pursued due to his COVID-19 infection. - He has tried extra-strength Tylenol 650 mg, which was initially effective but is no longer providing relief. - The patient has a history of an allergic reaction to Advil and aspirin approximately 10 years ago, which caused hives and elevated blood pressure. - During his recent hospitalization, he was diagnosed with new-onset atrial fibrillation and was started on Eliquis and metoprolol. - His hemoglobin was low at 7.2, later improving to 7.6, and he was given iron. - He also experienced significant diarrhea, but a C. diff test from February 03 was negative. - Past medical history is significant for Parkinson's disease. - He is currently receiving home physical therapy to regain strength. - He reports feeling more winded when going upstairs since being home. Social History - Functional Status: The patient is currently receiving home physical therapy services to improve strength following a prolonged period of inactivity due to hospitalization and rehab. - Family Support: The patient is accompanied by his daughter, and his participates in the visit via phone, indicating family involvement in his care. Results - Labs: Hemoglobin during recent hospitalization was 7.2 g/dL, which improved to 7.6 g/dL. - Labs: C. difficile test was negative on February 03. [facility] Medical History (Updated 03/13/25 @ 14:03 by Casey Osorio MD) Microcytic anemia Atrial fibrillation Parkinson's disease without dyskinesia Surgical History History of hip replacement H/O: vasectomy H/O inguinal hernia repair H/O cataract extraction Family History Father Diabetes [facility] Alcohol intake: current Alcohol intake frequency: does not drink Patient Tobacco Use Status: Former Tobacco user e-Cigarette/Vaping Use: Never Used Second Hand Smoke Exposure: Yes service: No Current occupational status: retired Cognitive needs: Yes (Cane, Walker) Hearing needs: No Vision needs: Yes (Glasses) Questionnaire PHQ-9 Over the last 2 weeks, how often have you been bothered by any of the following problems? 1. Little interest or pleasure in doing things: not at all 2. Feeling down, depressed, or hopeless: not at all 3. Trouble falling or staying asleep, or sleeping too much: not at all 4. Feeling tired or having little energy: not at all 5. Poor appetite or overeating: not at all 6. Feeling bad about yourself - or that you are a failure or have let yourself or your family down: not at all 7. Trouble concentrating on things, such as reading the newspaper or watching television: not at all 8. Moving or speaking so slowly that other people could have noticed. Or the opposite - being so fidgety or restless that you have been moving around a lot more than usual: not at all 9. Thoughts that you would be better off or of hurting yourself in some way: not at all Total score: 0 Depression Screening Interpretation: Negative Depression Screening Done: Yes Source: Developed by Drs. Rachid Skinner, Papito Leroy and colleagues, with an educational cresencio from [employer]. Thrive Questionnaire Date Thrive assessed: 10/04/24 I am a: Patient What is your living situation today?: I have a steady place to live Within the past 12 months, did the food you bought not last and you didn't have the money to get more?: Never true Within the past 12 months, did you worry whether your food would run out before you got money to buy more?: Never true Do you have trouble paying for medicines?: No Do you have trouble getting transportation to medical appointments?: No Do you have trouble paying your heating and electricity bill?: No Do you have trouble taking care of your child, family member or friend?: No Do you have trouble with day-to-day activities such as bathing, preparing meals, shopping, managing finances, etc.?: No Are you currently unemployed and looking for a job?: No Are you interested in more education?: No Please select the resources that you would like help with: None Currently or been in a relationship where the following occur: No concerns reported THRIVE Score: 0 AUDIT C Alcohol Use Questionnaire (AUDIT-C) 1. How often do you have a drink containing alcohol?: Monthly or less 2. How many drinks containing alcohol do you have on a typical day when you are drinking?: 1 or 2 Total Score: 1 CAROL-7 AMB Questionnaire CAROL-7 Date CAROL - 7 assessed: 10/11/24 Trouble relaxin = Not at all Source: Developed by Drs. Rachid Skinner, Papito Leroy and colleagues, with an educational cresencio from [employer]. Review of Systems Narrative Review of Systems - Constitutional: Reports feeling more winded going upstairs. - Respiratory: Denies subjective shortness of breath at rest, but his breathing is okay. - Dermatologic: Reports a rash on his right hip. - Musculoskeletal: Reports constant pain originating from the right hip and radiating down the leg. - Gastrointestinal: Reports a history of significant diarrhea during his recent hospitalization. - Allergies: Reports a history of hives and elevated blood pressure with Advil and aspirin. Physical exam (Primary Care) Vital Signs: Last Vital Signs Temp 97.3 F 03/13/25 13:25 Pulse 71 03/13/25 13:25 BP 138/62 03/13/25 13:25 Pulse Ox 96 03/13/25 13:25 Oxygen Delivery Method Room Air 03/13/25 13:25 BMI result Body Mass Index 34.5 Tobacco/Smoking Status: Tobacco use Status Tobacco use date assessed 03/13/25 03/13/25 13:36 Patient Tobacco Use Status Former Tobacco user 03/13/25 13:36 e-Cigarette/Vaping Use Never Used 03/13/25 13:36 PHQ-9: PHQ-9 Score PHQ-9: Total score 0 03/13/25 13:49 Depression Screening Interpretation: Negative Thrive Assessment: Date of Thrive Assessment Date Thrive assessed 10/04/24 03/13/25 13:36 Currently or been in a relationship where the following occur: No concerns reported Narrative Physical Exam General: Appearance normal, both eyes and all related structures Nutritional Appearance: Well nourished Orientation/consciousness: Patient oriented x3 Limitations: No limitations Head: Normal to inspection Neck: Normal visual inspection Chest: Normal palpation of entire chest wall Respiratory: Wheezing noted, but patient reports no shortness of breath Neurology: Patient oriented x3 Coding Level of Care Code Est Pt Level 4 (75497) Complex EM visit Add On G2211 Diagnoses Atrial fibrillation I48.91 Assessment & Plan Assessment & Plan (1) Atrial fibrillation: Code(s): I48.91 - Unspecified atrial fibrillation Category: Medical Plan Plan - For skin irritation on the right hip and leg, a prescription for hydrocortisone cream will be sent to [facility]. - For lumbar sciatica pain, the patient is advised to try an ohqr-fbu-dyrfuwx NSAID (Advil, Motrin, or Aleve), starting with what is available at home, and monitor for any adverse reactions. - If the xnnl-rez-lrhcrkb NSAID is tolerated but ineffective, a stronger prescription medication can be provided. - Home physical therapy will continue to address pain and weakness. - The patient will continue taking Eliquis and metoprolol 50 mg for atrial fibrillation. - A referral has been made to a last repairer helper at [facility] for management of his atrial fibrillation. - Lab orders have been placed to repeat blood work to check for anemia; this can be done at the [facility] in [place] at any time, non-fasting. - The patient will continue his current Parkinson's medication regimen. - No new medications will be prescribed for wheezing at this time as the patient is not experiencing shortness of breath. - The patient will receive a flu shot. - A follow-up appointment is scheduled in three months, or sooner if needed. - The patient and family were instructed on how to gain access to the patient portal for communication. Discussion Notes I reviewed the patient's recent hospitalization and post-discharge concerns with him and his daughter. I explained that the rash on his right hip appears to be irritation, and I am prescribing a hydrocortisone cream for it. We discussed his significant right leg pain, consistent with sciatica. Given that Tylenol is no longer effective, I recommended a trial of an tnrn-kfq-bjdbfta anti-inflammatory like Advil. We discussed his prior reaction to NSAIDs, which occurred about 10 years ago, and agreed to proceed cautiously, monitoring for any side effects like rash or increased blood pressure. I explained that if the trial is successful without side effects but pain relief is inadequate, I can prescribe a stronger once-a-day medication. I clarified the reason for his new medications from the hospital: he developed atrial fibrillation, which is an irregular heartbeat, and was started on Eliquis (a blood thinner) and metoprolol (to control heart rate). I emphasized the need to continue these medications and made a referral to a last repairer helper for specialized management, explaining that the specialist will determine the long-term plan for these drugs. We addressed the anemia noted in the hospital, and I have ordered repeat lab work to monitor his blood counts. I also noted some wheezing on his lung exam but opted to hold off on new inhalers as he is not currently short of breath. I advised the family to set up patient portal access for easier communication and scheduled a follow-up in three months, with instructions to reach out sooner if any issues arise. Patient Instructions - I have prescribed a hydrocortisone cream for the rash on your right hip and leg. - For your leg pain, carefully try taking an djjg-eay-awsivec pain reliever like Advil, Motrin, or Aleve. - Watch for any side effects like a rash for about a day after taking the new pain medicine. - Continue with your home physical therapy sessions. - You must continue taking your new medications, Eliquis and metoprolol, as prescribed. - I have referred you to a floor specialist (last repairer helper) at [facility]. - Please go to the [facility] in [place] to have blood work done. - You will receive your flu shot today. - Please set up your patient portal account for easier communication. - Your next appointment with me is in three months, but contact the office sooner if needed. Orders: Orders Liver Panel Today D50.9 - Iron deficiency anemia, unspecified Thyroid Stimulating Hormone Today D50.9 - Iron deficiency anemia, unspecified Basic Metabolic Panel Today D50.9 - Iron deficiency anemia, unspecified Complete Blood Count no Diff Today D50.9 - Iron deficiency anemia, unspecified Lipid Panel Today D50.9 - Iron deficiency anemia, unspecified UA and rflx microscopic Today D50.9 - Iron deficiency anemia, unspecified Referrals Cardiology Referral I48.91 - Unspecified atrial fibrillation Medications: New metoprolol succinate ER 50 mg PO DAILY 90 tabs 1RF hydrocortisone 2.5% 1 appl topical BID 20 grams 0RF apixaban (Eliquis) 5 mg PO BID 180 tabs 0RF
[2025-03-13 13:25] VITALS: BP 138/62; PULSE 71; TEMP 36.3; O2SAT 96; BMI 34.5
--- OUTSIDE RECORDS SUMMARY | 2025-03-14 01:12 | XMS_ITS | Clinical Summary ---
Author Organization [facility] Address [address] [address] Phone Care Team Providers Care Veterinary Anatomist Name Role Phone Casey Osorio MD Primary Care Provid er Allergies Active Allergy Reactions Criticality Noted Date Comments Aspirin Hives 01/24/2025 Other Reaction(s): Ibuprofen Ibuprofen 12/27/2023 Penicillin 12/27/2023 Medications carbidopa-levod opa (SINEMET) 25-100 mg per tablet TAKE 1 TAB AT 10AM&4PM.MAEVE E 2 TABS AT 1PM,7PM&10 PM.TAKE 1 TAB NEEDED IN MIDDLE OF NIGHT (3AM) Active trihexyphenidyL (ARTANE) 2 MG tablet Take 1 mg by mouth 2 (two) times a day. Active rasagiline (AZILECT) 1 mg Take 1 mg by mouth daily. Active gabapentin (NEURONTIN) 100 MG capsule Take 100 mg by mouth nightly at bedtime. 12/13/2023 Active metoprolol tartrate (LOPRESSOR) 25 MG tablet Take 50 mg by mouth daily. 03/07/2025 Active apixaban (ELIQUIS) 5 mg tablet Take 5 mg by mouth every 12 (twelve) hours. 03/07/2025 Active ascorbic acid, vitamin C, (VITAMIN C) 500 MG tablet Take 500 mg by mouth daily. 03/07/2025 Active pantoprazole (PROTONIX) 40 MG tablet Take 40 mg by mouth daily. 03/07/2025 Active coenzyme Q10 100 mg capsule Take 100 mg by mouth daily. 02/28/2025 Active Active Problems No known active problems Encounters Date Type Department Care Team Description 03/12/2025 1:30 PM EST Home Care Visit [facility] [address] [place] [address] Megan Sanabria, PT PT EVALUATION 03/12/2025 1:00 PM EST Home Care Visit [facility] [address] [place] [address] Sandi Euceda RN SN HOME VISIT 03/12/2025 12:15 PM EST Home Care Visit [facility] [address] [place] [address] Lizeth Crump, OT OT EVALUATION 03/11/2025 Home Care Visit [facility] [address] [place] [address] Lizeth Crump, OT TELEPHONE ENCOUNTER 03/07/2025 12:30 PM EST Home Care Visit [facility] [address] [place] [address] Carissa Calzada RN SN OASIS START OF CARE (SOC) 03/07/2025 Plan of Care Documentation [facility] [address] [place] [address] 02/22/2025 Orders Only [facility] [address] [place] [address] Homehealth, Interface ProviderMD 01/24/2025 1:50 PM EDT Office Visit [facility] [address] [address] Letitia Brennan, GARY COVID-19 (Primary Dx); Fever, unspecified from Last 3 Months Social History Tobacco Use Types Packs/Day Years [...] on file Sexual Orientation Not on file Last Filed Vital Signs Vital Sign Reading Time Taken Comments Blood Pressure 140/80 03/12/2025 1:50 PM EST Pulse 55 03/12/2025 1:50 PM EST Temperature 36.5 C (97.7 F) 03/12/2025 1:50 PM EST Respiratory Rate 18 03/12/2025 1:50 PM EST Oxygen Saturation 95% 03/12/2025 1:50 PM EST Inhaled Oxygen Concentration - - Weight - - Height - - Body Mass Index - - Plan of Treatment Upcoming Encounters Date Type Department Care Team (Late st Contact Info) Description 03/14/2025 12:00 PM EST Appointment [facility] [address] [place] [address] Lizeth Crump, OT [address] [place] [address] [email or web address] 03/14/2025 12:45 PM EST Appointment [facility] [address] [place] [address] Sandi Euceda, RN [address] [place] [address] [email or web address] 03/15/2025 12:30 PM EST Appointment [facility] [address] [place] [address] Rose Vega, PT [address] [place] [address] [email or web address] 03/19/2025 12:00 PM EST Appointment [facility] [address] [place] [address] Lizeth Crump, OT [address] [place] [address] [email or web address] 03/20/2025 2:00 AM EST Appointment [facility] [address] [place] [address] Sandi Euceda, RN [address] [place] [address] [email or web address] 03/21/2025 1:30 AM EST Appointment [facility] [address] [place] [address] Sandi Euceda, LURDES [address] [place] [address] [email or web address] 03/22/2025 10:15 AM EST Appointment [facility] [address] [place] [address] Rose Vega, PT [address] [place] [address] [email or web address] 03/25/2025 Appointment [facility] [address] [place] [address] Rose Vega, PT [address] [place] [address] [email or web address] 03/26/2025 12:45 AM EST Appointment [facility] [address] [place] [address] Lizeth Crump, OT [address] [place] [address] [email or web address] 03/26/2025 1:30 AM EST Appointment [facility] [address] [place] [address] Sandi Euceda, RN [address] [place] [address] [email or web address] 03/27/2025 1:30 AM EST Appointment [facility] [address] [place] [address] Rose Vega, PT [address] [place] [address] [email or web address] 03/28/2025 1:00 AM EST Appointment [facility] [address] [place] [address] Sandi Euceda, RN [address] [place] [address] [email or web address] 03/28/2025 1:30 AM EST Appointment [facility] [address] [place] [address] Lizeth Crump, OT [address] [place] [address] [email or web address] 04/01/2025 12:45 AM EST Appointment [facility] [address] [place] [address] Rose Vega, PT [address] [place] [address] [email or web address] 04/02/2025 1:30 AM EST Appointment [facility] [address] [place] [address] Sandi Euceda, RN [address] [place] [address] [email or web address] 04/02/2025 12:00 PM EST Appointment [facility] [address] [place] [address] Lizeth Crump, OT [address] [place] [address] [email or web address] 04/03/2025 Appointment [facility] [address] [place] [address] Rose Vega, PT [address] [place] [address] 04/04/2025 1:00 AM EST Appointment [facility] [address] [place] [address] Sandi Euceda, LURDES [address] [place] [address] 04/04/2025 12:00 PM EST Appointment [facility] [address] [place] [address] Lizeth Crump, OT [address] [place] [address] 04/09/2025 1:30 AM EST Appointment [facility] [address] [place] [address] Sandi Euceda RN [address] [place] [address] [email or web address] 04/11/2025 Appointment [facility] [address] [place] [address] Sandi Euceda, LURDES [address] [place] [address] [email or web address] 04/16/2025 2:30 AM EST Appointment [facility] [address] [place] [address] Sandi Euceda RN [address] [place] [address] [email or web address] 04/18/2025 1:00 AM EST Appointment [facility] [address] [place] [address] Sandi Euceda, LURDES [address] [place] [address] 04/23/2025 1:30 AM EST Appointment [facility] [address] [place] [address] Sandi Euceda, LURDES [address] [place] [address] [email or web address] 04/25/2025 12:30 AM EST Appointment [facility] [address] [place] [address] Sandi Euceda, RN [address] [place] [address] Health Maintenance Due Date Last Done Comments Adult Td,Tdap Booster 1945 CREATININE LEVEL 1945 LIPID PANEL 1945 DEPRESSION SCREENING 1957 SMOKING Hx and SMOKELESS TOB ACCO SCREENING 1958 HEPATITIS C SCREENING 07/01/1963 PNEUMOCOCCAL VACCINES (50+ y ears) (1 of 1 - PCV) 07/01/1995 ZOSTER VACCINES (1 of 2) 07/01/1995 RSV VACCINE (1 - 1-dose 75+ series) 2020 INFLUENZA VACCINE (#1) 2024 COVID-19 VACCINE (1 - 2024-2 6 season) 2024 HEPATITIS A VACCINES Aged Out No long er eligible based on patient's age to complete this topic HIB VACCINES Aged Out No longer eligi ble based on patient's age to complete this topic MENINGOCOCCAL VACCINES (ACWY) Aged Out No longer eligible based on patient's age to complete this topic MENINGOCOCCAL VACCINES (B) Aged Out N o longer eligible based on patient's age to complete this topic Medical Devices Not on file Procedures Procedure Name Priority Date/Time Associated Diagnosis Comments POCT URINE DIPSTICK Routine 01/24/2025 2 :29 PM EDT POCT COVID-19 RT-PCR/INFLUENZA A & B/RSV CEPHEID Routine 01/24/2025 2:16 PM EDT from Last 3 Months Results * (ABNORMAL) POCT Urine Dipstick (Automated) (01/24/2025 2:29 PM EDT) COLOR DK YELLOW [facility] TURBIDITY Slightly Cloudy [facility] GLUCOSE, POCT Negative Negative [facility] KETONE, POCT 1+(A) Negative [facility] OCCULT BLOOD, POCT Negative Negative [facility] SPECIFIC GRAVITY, POCT 1.020 1.001 - 1.030 [facility] ALBUMIN, POCT 2+(A) Negative [facility] Bili Negative Negative [facility] Urobilinogen 0.2 <1.0 [facility] NITRITE, POCT Negative Negative [facility] PH, POCT 5.5 5.0 - 8.0 [facility] WBC SCREEN, POCT Negative Negative [facility] 01/24/2025 2:29 PM EDT 01/24/2025 2:32 PM EDT us Letitiaaleksey Brennan SCUBA INSTRUCTOR LAB POCT ENTER/EDIT ORDERAB LES Final Result Performing Organization Address [facility]/State/ZIP Co de Phone Number [facility] [address] [place] [address], [facility] [phone] * (ABNORMAL) POCT COVID-19 RT-PCR/Influenza A & B/RSV (Cepheid) (01/24/2025 2:16 PM EDT) [facility] RSV PCR Negative Negative [facility] SARS-CoV-2 (COVID-19) Positive(A) Negative [facility] POC Influenza A PCR Negative Negative [facility] POC Influenza B PCR Negative Negative [facility] 01/24/2025 2:16 PM EDT 01/24/2025 2:56 PM EDT us Letitiaaleksey Brennan SCUBA INSTRUCTOR LAB POCT ENTER/EDIT ORDERAB LES Final Result [facility] [address] [address], [facility] [phone] from Last [address] [place] [address] MEDICARE PPO BLUE [place] [address] MEDICARE PPO BLUE REPLACEMENT [facility] MEDICARE PPO BLUE [place] [address] MEDICARE PPO BLUE REPLACEMENT [facility] MEDICARE PPO BLUE [place] [address] MEDICARE PPO BLUE REPLACEMENT Care Teams Veterinary Anatomist Relationship Specialty Start Date End Date Casey Osorio MD [address] [place] [id number] PCP - General Internal Medicine 01/24/25 Additional Source Comments The information contained in this document represents components of the legal health record. It is not the complete legal health record.[facility]
--- OUTSIDE RECORDS SUMMARY | 2025-03-14 01:13 | XMS_ITS | Encounter Summary ---
Author Organization [facility] Address [address] [facility] [address] [place] [address] Phone Care Team Providers Care Serging Machine Operator Automatic Name Role Phone Casey Osorio MD Primary Care Provid er Reason for Visit * Auth/Cert (Routine) Specialty Diagnoses / Procedures Referred By Silvana tinajero Referred To Contact Referral ID Status Reason Start Date Expiration Date Visits Re quested Visits Authorized [id number] 1 1 Encounter Details Date Type Department Care Team ([facility] st Contact Info) Description 03/11/2025 Home Care Visit [facility] [address] [place] [address] Lizeth Crump, OT [address] [place] [address] [email or web address] TELEPHONE ENCOUNTER Social History Tobacco Use Types Packs/Day Years [...] on file documented as of this encounter Plan of Treatment Upcoming Encounters Date Type Department Care Team (Late st Contact Info) Description 03/14/2025 12:00 PM EST Appointment [facility] [address] [place] [phone] Lizeth Crump, OT [address] [place] [address] 03/14/2025 12:45 PM EST Appointment [facility] [address] [place] [address] Sandi Euceda, LURDES [address] [place] [address] 03/15/2025 12:30 PM EST Appointment [facility] [address] [place] [phone] Rose Vega, PT [address] [place] [address] 03/19/2025 12:00 PM EST Appointment [facility] [address] [place] [phone] Lizeth Crump, OT [address] [place] [address] 03/20/2025 2:00 AM EST Appointment [facility] [address] [place] [phone] Sandi Euceda RN [address] [place] [address] 03/21/2025 1:30 AM EST Appointment [facility] [address] [place] [phone] Sandi Euceda RN [address] [place] [address] 03/22/2025 10:15 AM EST Appointment [facility] [address] [place] [address] Rose Vega, PT [address] [place] [address] 03/25/2025 Appointment [facility] [address] [place] [address] Rose Vega, PT [address] [place] [address] 03/26/2025 12:45 AM EST Appointment [facility] [address] [place] [address] Lizeth Crump, OT [address] [place] [address] 03/26/2025 1:30 AM EST Appointment [facility] [address] [place] [address] Sandi Euceda, RN [address] [place] [address] 03/27/2025 1:30 AM EST Appointment [facility] [address] [place] [address] Rose Vega, PT [address] [place] [address] 03/28/2025 1:00 AM EST Appointment [facility] [address] [place] [address] Sandi Euceda, RN [address] [place] [address] 03/28/2025 1:30 AM EST Appointment [facility] [address] [place] [address] Lizeth Crump, OT [address] [place] [address] 04/01/2025 12:45 AM EST Appointment [facility] [address] [place] [address] Rose Vega, PT [address] [place] [address] 04/02/2025 1:30 AM EST Appointment [facility] [address] [place] [address] Sandi Euceda, RN [address] [place] [address] 04/02/2025 12:00 PM EST Appointment [facility] [address] [place] [address] Lizeth Crump, OT [address] [place] [address] 04/03/2025 Appointment [facility] [address] [place] [address] Rose Vega, PT [address] [place] [address] 04/04/2025 1:00 AM EST Appointment [facility] [address] [place] [address] Sandi Euceda, LURDES [address] [place] [address] 04/04/2025 12:00 PM EST Appointment [facility] [address] [place] [address] Lizeth Crump, OT [address] [place] [address] 04/09/2025 1:30 AM EST Appointment [facility] [address] [place] [address] Sandi Euceda RN [address] [place] [address] 04/11/2025 Appointment [facility] [address] [place] [phone] Sandi Euceda RN [address] [place] [address] 04/16/2025 2:30 AM EST Appointment [facility] [address] [place] [phone] Sandi Euceda RN [address] [place] [address] 04/18/2025 1:00 AM EST Appointment [facility] [address] [place] [phone] Sandi Euceda RN [address] [place] [address] 04/23/2025 1:30 AM EST Appointment [facility] [address] [place] [phone] Sandi Euceda, LURDES [address] [place] [address] 04/25/2025 12:30 AM EST Appointment [facility] [address] [place] [phone] Sandi Euceda RN [address] [place] [address] documented as of this encounter Visit Diagnoses Not on filedocumented in this encounter Care Teams Serging Machine Operator Automatic Relationship Specialty Start Date End Date Casey Osorio MD [address] [place] [phone] PCP - General Internal Medicine 10/2/25 documented as of this encounter Additional Source Comments The information contained in this document represents components of the legal health record. It is not the complete legal health record.[facility]
== END 2025-03-13 14:16 | disposition home or self-care (01) ==
LOC: HO.HMCH 13:19
PROVIDERS: Visit Provider Internal Medicine
DX: I48.91 Unspecified atrial fibrillation (principal)

== ENCOUNTER → 2025-03-13 13:18 | Outpatient (BNVA) | payer MEDICARE, SELFPAY | PROVIDERS: Visit Provider Internal Medicine | DX: Z51.89 Encounter for other specified aftercare (principal); I48.19 Other persistent atrial fibrillation; D50.8 Other iron deficiency anemias; M79.604 Pain in right leg; R21 Rash and other nonspecific skin eruption; Z13.31 Encounter for screening for depression; Z79.01 Long term (current) use of anticoagulants; Z86.16 Personal history of COVID-19; Z87.891 Personal history of nicotine dependence; Z98.890 Other specified postprocedural states | CPT/HCPCS: 96127; 99212 ==

== ENCOUNTER 2025-03-14 14:06 | Outpatient (REF) | payer MEDICARE, SELFPAY ==
[2025-03-14 17:55] LABS: Hematocrit 30.2 % (42.0-52.0); Hemoglobin 9.3 g/dl (14.0-18.0); Mean Corpuscular HGB Conc 30.8 g/dl (31.0-36.0); Mean Corpuscular Hemoglobin 33.1 pg (27.0-33.0); Mean Corpuscular Volume 107.5 fL (80.0-98.0); NRBC Abs Auto 0.000 X10*3/uL (0.0-0.012); NRBC Pct Auto 0.0 /100WBC (0.0-0.2); Platelet Count 364 X10*3/uL (160-400); Red Blood Count 2.81 X10*6/uL (4.60-5.80); White Blood Count 8.4 X10*3/uL (4.8-10.8)
[2025-03-14 18:32] LABS: Alanine Aminotransferase < 6 U/L (0-40); Albumin Level 3.3 g/dL (3.5-5.0); Alkaline Phosphatase 88 U/L (39-117); Anion Gap 11 (12-20); Aspartate Amino Transferase 24 U/L (5-37); Blood Urea Nitrogen 12 mg/dL (9-16); Calcium 8.3 mg/dL (8.4-10.2); Carbon Dioxide 24 mmol/L (22-29); Chloride 111 mmol/L (96-108); Cholesterol 140 mg/dL (<200); Estimated Glomerular Filt Rate > 60; HDL Cholesterol 39 mg/dL (>40); Potassium 4.3 mmol/L (3.3-5.1); Sodium 142 mmol/L (135-145); Total Protein 6.2 g/dL (6.5-8.0); Triglycerides 93 mg/dL (<150)
[2025-03-14 18:50] LABS: Thyroid Stimulating Hormone 4.57 uIU/mL (0.32-4.0)
== END 2025-03-14 14:07 | disposition home or self-care (01) ==
LOC: HO.WFDLDS 14:06
PROVIDERS: Visit Provider Internal Medicine
DX: D50.8 Other iron deficiency anemias (principal); Z13.6 Encounter for screening for cardiovascular disorders; Z13.29 Encounter for screening for other suspected endocrine disorder
CPT/HCPCS: 36415; 80048; 80061; 80076; 84443; 85027

== ENCOUNTER 2025-03-15 11:19 | Outpatient (REF) | payer MEDICARE, SELFPAY ==
--- OUTSIDE RECORDS SUMMARY | 2025-03-12 12:15 | XMS_ITS | Encounter Summary ---
Author Organization [facility] Address [address] [facility] [address] [place] [phone] Phone Care Team Providers Care Dental Laboratory Manager Name Role Phone Casey Osorio MD Primary Care Provid er Reason for Visit * Auth/Cert (Routine) Specialty Diagnoses / Procedures Referred By Silvana tinajero Referred To Contact Referral ID Status Reason Start Date Expiration Date Visits Re quested Visits Authorized [id number] 1 1 Encounter Details Date Type Department Care Team ([facility] Contact Info) Description 03/12/2025 12:15 PM EST Home Care Visit [facility] [address] [place], [place] [phone] Lizeth Crump, OT [address] [place] [address] [email or web address] OT EVALUATION Social History Tobacco Use Types Packs/Day Years Used Date Smoking Tobacco: Never Assessed Home Health Assessment: Transportation Answer Date Recorded Lack of Transportation (Medical) No 03/07/2025 Lack of Transportation (Non-Medical) No 03/07/2025 Patient Unable or Declines to Respond No 03/07/2025 Education Answer Date Recorded Are you interested in more education? Not on bobbi e 12/28/2023 Are you concerned about learning? Not on file 12/28/2023 No 12/28/2023 No 12/28/2023 Digital Access Answer Date Recorded No 12/28/2023 No 12/28/2023 Reliable internet access at home? Not on file 12/28/2023 Device with a working camera? Not on file Sex and Gender Information Value Date Recorded Sex Assigned at Not on file Legal Sex Male 4:02 PM EDT Gender Identity Not on file Sexual Orientation Not on file documented as of this encounter Last Filed Vital Signs Vital Sign Reading Time Taken Comments Blood Pressure 118/68 03/12/2025 12:31 PM EST Pulse 56 03/12/2025 12:31 PM EST Temperature 36.8 C (98.2 F) 03/12/2025 12:31 PM EST Respiratory Rate 18 03/12/2025 12:31 PM EST Oxygen Saturation 98% 03/12/2025 12:31 PM EST Inhaled Oxygen Concentration - - Weight - - Height - - Body Mass Index - - documented in this encounter Plan of Treatment Upcoming Encounters Date Type Department Care Team (Late st Contact Info) Description 03/15/2025 12:30 PM EST Appointment [facility] [address] [place] [phone] Rose Vega, PT [address] [place] [address] 03/19/2025 12:00 PM EST Appointment [facility] [address] [place] [phone] Lizeth Crump, OT [address] [place] [address] 03/20/2025 12:15 PM EST Appointment [facility] [address] [place] [phone] Sandi Euceda, RN [address] [place] [address] 03/22/2025 10:15 AM EST Appointment [facility] [address] [place] [phone] Rose Vega, PT [address] [place] [address] 03/25/2025 Appointment [facility] [address] [place] [phone] Rose Vega, PT [address] [place] [address] 03/26/2025 1:00 PM EST Appointment [facility] [address] [place] [phone] Lizeth Crump, OT [address] [place] [address] 03/27/2025 1:30 AM EST Appointment [facility] [address] [place] [phone] Rose Vega, PT [address] [place] [address] 03/28/2025 1:00 AM EST Appointment [facility] [address] [place] [phone] Sandi Euceda, RN [address] [place] [address] 03/28/2025 1:00 PM EST Appointment [facility] [address] [place] [phone] Lizeth Crump, OT [address] [place] [address] 04/01/2025 12:45 AM EST Appointment [facility] [address] [place] [phone] Rose Vega, PT [address] [place] [address] 04/02/2025 12:00 PM EST Appointment [facility] [address] [place] [phone] Lizeth Crump, OT [address] [place] [address] 04/03/2025 Appointment [facility] [address] [place] [phone] Rose Vega, PT [address] [place] [address] 04/04/2025 1:00 AM EST Appointment [facility] [address] [place] [phone] Sandi Euceda, LURDES [address] [place] [address] 04/04/2025 12:00 PM EST Appointment [facility] [address] [place] [phone] Lizeth Crump, OT [address] [place] [address] 04/11/2025 Appointment [facility] [address] [place] [phone] Sandi Euceda, LURDES [address] [place] [address] 04/18/2025 1:00 AM EST Appointment [facility] [address] [place] [phone] Sandi Euceda, LURDES [address] [place] [address] 04/25/2025 12:30 AM EST Appointment [facility] [address] [place] [phone] Sandi Euceda, LURDES [address] [place] [address] 05/02/2025 12:30 AM EST Appointment [facility] [address] [place] [phone] Sandi Euceda, LURDES [address] [place] [address] documented as of this encounter Visit Diagnoses Not on filedocumented in this encounter Home Health Visit - Care Plan Visit Details Visit Type -OT EVALUATION Discipline -Occupational Therapy Problems Problem Description Start Date Status Goals Interve ntions HH - Medication Management Disciplines: All Active Home Health Disciplines 03/07/2025 Active 1 goal linked to scheduled/document ed intervention 2 goal interventions scheduled/document ed in this visit HH - Focus of Care and Teaching Disciplines: All Active Home Health Disciplines w/RD 03/07/2025 Active 1 goal linked to scheduled/document ed intervention 1 goal intervention scheduled/document ed in this visit HH - Emergency Planning - Knowledge of Disciplines: All Active Home Health Disciplines 03/07/2025 Active 1 goal linked to scheduled/document ed intervention 2 goal interventions scheduled/document ed in this visit HH - Standard of Care Disciplines: All Active Home Health Disciplines 03/07/2025 Active 1 goal linked to scheduled/document ed intervention 2 goal interventions scheduled/document ed in this visit Goals Goal Associated Problem Outcome Goal Met? Visit Notes HH - Safe medication management, avoid unnecessary harm related to medication errors and/or interactions HH - Medication Management No HH - Communication and collaboration to achieve patient goals HH - Focus of Care and Teaching No HH - Knowledge of options for managing care in the event of an emergency related situation. HH - Emergency Planning - Knowledge of No HH - Achieve care management for a safe to home/community discharge from homecare HH - Standard of Care No Interventions Intervention Associated Problem/Goal Status Variance Visit Notes HH - I/E medication management: administration, purpose, dosages, preparation, setup, scheduling, side effects, food/drug interactions, and potential complications as indicated Description: Update patient's copy of medication list as needed. Problem:HH - Medication Management Goal:HH - Safe medication management, avoid unnecessary harm related to medication errors and/or interactions Performed - Complete medication review every visit and medication reconciliation as indicated. Pharmacy information: Description: med rec will be completed at each visit Problem:HH - Medication Management Goal:HH - Safe medication management, avoid unnecessary harm related to medication errors and/or interactions Performed HH - Focus of care, teaching completed and plan for next visit Problem:HH - Focus of Care and Teaching Goal:HH - Communication and collaboration to achieve patient goals Performed Primary Clinical Focus this Visit & Instruction Provided: Referral: Pt is a 79 y/o male with a hx of Parkinson who was recently tested positive for COVID and was hospitalized due to respiratory complications. Caregiver reported pt was treated in the hosp ital with I V antibiotics and was then transferred to a SNF due to c/o of generalized weakness. Environment/DME: 2 steps to enter the home. Multi level home with bedroom and full bathroom upstairs. Half bathroom on main level. Tub bench for tub/shower combo unit, versa bars on downstairs toilet, commode over upstairs toilet though poorly adjusted caregiver to increase height, stairs to upstairs have B handrails, bed rail on adjustable bed, multiple reachers throughout home. Daughter ordered a tray fo r rw but has not arrived yet Support: very supportive spouse lives with the patient CLOF: CGA bed mob, CGA sit<>stands, CGA shower transfers, toilet transfers S, stairs CGA, Max A bathing, dressing Min A, grooming set up A, oral care set up A, toiletin g Min A, IADLs A from spouse CLOF: all transfers S, Min A functional mob especially when needing to turn, CGA stairs, bed mob S, shower transfers S, toilet transfers S, dressing Min A, bathing Max A, feeding set up A, oral care and grooming set up A B UE Function: B UE 4-/5 MMT, B UE ROM WFL, no sensation deficits noted, tremors, fine motor skills fair Objective Measures Taisha Index of ADLs 70/100 OT orders: 2x1wk,1x1wk,2x2wks Summary: Pt is a 79 y/o male with a hx of Parkinson who was recently tested positive for COVID and was hospitalized due to respiratory complications. Caregiver reported pt was treated in the hospital with I V antibiotics and was then transferred to a SNF due to c/o of generalized weakness. Patient presents to OT with dec line in function from Mod I ADLs and CGA- S functional mob to requiring considerably more caregiver assistance. Patient is deconditioned and requires Max A bathing and presents with high fall risk 2/2 impaired balance. Skilled OT 2x1wk,1x1wk,2x2wks to fa cilitate improved function and safety in home setting. HH - I/E management of care in an urgent or emergency (ER) situation: When to call your Home Care Team/911, ER plans, supplies, evacuation, when to contact local ER officials and how to stay informed Problem:HH - Emergency Planning - Knowledge of Goal:HH - Knowledge of options for managing care in the event of an emergency related situation. Performed HH - Emergency planning assessment: the emergency plan, supplies needed, emergency contact numbers and an evacuation plan were reviewed Description: Patient and Caregiver is/are knowledgeable of emergency plans. Problem:HH - Emergency Planning - Knowledge of Goal:HH - Knowledge of options for managing care in the event of an emergency related situation. Performed HH - Assess vital signs, pulse oximetry, pain, and as indicated, orthostatic vital signs Description: use agency-specific parameters Problem:HH - Standard of Care Goal:HH - Achieve care management for a safe to home/community discharge from homecare Performed HH - Assess skin integrity Problem:HH - Standard of Care Goal:HH - Achieve care management for a safe to home/community discharge from homecare Performed documented in this encounter Care Teams Dental Laboratory Manager Relationship Specialty Start Date End Date Casey Osorio MD [address] [place] [phone] PCP - General Internal Medicine 01/24/25 documented as of this encounter Additional Source Comments The information contained in this document represents components of the legal health record. It is not the complete legal health record.[facility]
--- OUTSIDE RECORDS SUMMARY | 2025-03-12 13:00 | XMS_ITS | Encounter Summary ---
Author Organization [facility] Address [address] [facility] [address] [place] [phone] Phone Care Team Providers Care Program Project Analyst Name Role Phone Casey Osorio MD Primary Care Provid er Reason for Visit * Auth/Cert (Routine) Specialty Diagnoses / Procedures Referred By Silvana tinajero Referred To Contact Referral ID Status Reason Start Date Expiration Date Visits Re quested Visits Authorized [id number] 1 1 Encounter Details Date Type Department Care Team ([facility] Contact Info) Description 03/12/2025 1:00 PM EST Home Care Visit [facility] [address] [place], [place] [phone] Sandi Euceda, LURDES [address] [place] [address] [email or web address] SN HOME VISIT Social History Tobacco Use Types Packs/Day Years [...] Sign Reading Time Taken Comments Blood Pressure 140/80 03/12/2025 1:14 PM EST Pulse 55 03/12/2025 1:14 PM EST Temperature 36.5 C (97.7 F) 03/12/2025 1:14 PM EST Respiratory Rate 18 03/12/2025 1:14 PM EST Oxygen Saturation 95% 03/12/2025 1:14 PM EST Inhaled Oxygen Concentration - - Weight - - Height - - Body Mass Index - - documented in this encounter Plan of Treatment Upcoming Encounters Date Type Department Care Team (Late st Contact Info) Description 03/15/2025 12:30 PM EST Appointment [facility] [address] [place] [phone] Rose Vega, PT [address] [place] [address] 03/19/2025 12:00 PM EST Appointment [facility] [address] [place] [phone] Lizeth Crump, OT [address] [place] [address] 03/20/2025 12:15 PM EST Appointment [facility] [address] [place] [phone] Sandi Euceda, RN [address] [place] [address] 03/22/2025 10:15 AM EST Appointment [facility] [address] [place] [phone] Rose Vega, PT [address] [place] [address] 03/25/2025 Appointment [facility] [address] [place] [phone] Rose Vega, PT [address] [place] [address] 03/26/2025 1:00 PM EST Appointment [facility] [address] [place] [phone] Lizeth Crump, OT [address] [place] [address] 03/27/2025 1:30 AM EST Appointment [facility] [address] [place] [phone] Rose Vega, PT [address] [place] [address] 03/28/2025 1:00 AM EST Appointment [facility] [address] [place] [phone] Sandi Euceda, RN [address] [place] [address] 03/28/2025 1:00 PM EST Appointment [facility] [address] [place] [phone] Lizeth Crump, OT [address] [place] [address] 04/01/2025 12:45 AM EST Appointment [facility] [address] [place] [phone] Rose Vega, PT [address] [place] [address] 04/02/2025 12:00 PM EST Appointment [facility] [address] [place] [phone] Lizeth Crump, OT [address] [place] [address] 04/03/2025 Appointment [facility] [address] [place] [phone] Rose Vega, PT [address] [place] [address] 04/04/2025 1:00 AM EST Appointment [facility] [address] [place] [phone] Sandi Euceda, LURDES [address] [place] [address] 04/04/2025 12:00 PM EST Appointment [facility] [address] [place] [phone] Lizeth Crump, OT [address] [place] [address] 04/11/2025 Appointment [facility] [address] [place] [phone] Sandi Euceda, LURDES [address] [place] [address] 04/18/2025 1:00 AM EST Appointment [facility] [address] [place] [phone] Sandi Euceda, LURDES [address] [place] [address] 04/25/2025 12:30 AM EST Appointment [facility] [address] [place] [phone] Sandi Euceda, LURDES [address] [place] [address] 05/02/2025 12:30 AM EST Appointment [facility] [address] [place] [phone] Sandi Euceda, LURDES [address] [place] [address] documented as of this encounter Visit Diagnoses Not on filedocumented in this encounter Home Health Visit - Care Plan Visit Details Visit Type -SN HOME VISIT Discipline -[facility] Problems Problem Description Start Date Status Goals [...] scheduled/document ed in this visit HH - Infection - Actual or Risk of Disciplines: All Active Home Health Disciplines 03/07/2025 Active 1 goal linked to scheduled/document ed intervention 2 goal interventions scheduled/document ed in this visit HH - Falls - Risk of Disciplines: All Active Home Health Disciplines 03/07/2025 Active 1 goal linked to scheduled/document ed intervention 2 goal interventions scheduled/document ed in this visit HH - Standard of Care Disciplines: All Active Home Health Disciplines 03/07/2025 Active 1 goal linked to scheduled/document ed intervention 4 goal interventions scheduled/document ed in this visit HH - Pain Disciplines: All Active Home Health Disciplines 03/07/2025 Active 1 goal linked to scheduled/document ed intervention 2 goal interventions scheduled/document ed in this visit HH - Edema - Actual or Risk of Disciplines: All Active Home Health Disciplines [...] Planning - Knowledge of No HH - Patient will have no new infection; any new infection that occurs will be identified and treated promptly; existing infection will resolve without complication Description: Patient and caregiver(s) will demonstrate understanding of infection prevention, monitoring, and treatment as appropriate HH - Infection - Actual or Risk of No HH - Knowledge and management of fall prevention measures. HH - Falls - Risk of No HH - Achieve care management for a safe to home/community discharge from homecare HH - Standard of Care No HH - Frequency of pain interfering with patient's activity or movement will improve with activity or movement by discharge. Description: Pain will be managed over the course of care. Patient's acceptable level of pain is 0 - no pain. HH - Pain No HH - Demonstrate/verbalize knowledge of causes, impacts, and risks associated with edema HH - Edema - Actual or Risk of No Interventions Intervention Associated Problem/Goal Status Variance [...] Clinical Focus this Visit & Instruction Provided: SNV for respiratory assessment. pt c/o SOB upon exertion, lungs are clear. PT and OT eval completed today. +1 pitting edema remains, SN educated to keep BLE elevated when sitting. no changes in me dications. pts spouse present during visit and showed this SN new rash on R upper thigh, does have new eliquis use. has f/u with PCP tomorrow. SN advised to show Dr tomorrow, could be side effect from new medication since it started when he was placed on this medication. pts spouse reports fall tuesday night in the kitchen. pt denies head strike, skin is intact, VSS, denies any HAs or visual changes. call made to PCP to make aware. SN edu on fall preventions and when to seek emergent care/call VNA. Inst ruction Provided to: patient and caregiver Response to Instruction/Teaching: Is partially able to teach back topics as evidenced by verbal recall. Plan for Next Visit Specific Focus & Education Needed: resp assess New Orders: NA Updated Discharge Chirag n: when the pt/cg is knowledgeable of what to report to provider HH - I/E management of care in [...] an emergency related situation. Performed HH - I/E infection Description: s/s of infection Problem:HH - Infection - Actual or Risk of Goal:HH - Patient will have no new infection; any new infection that occurs will be identified and treated promptly; existing infection will resolve without complication Performed HH - Assess infection risk and s/s Problem:HH - Infection - Actual or Risk of Goal:HH - Patient will have no new infection; any new infection that occurs will be identified and treated promptly; existing infection will resolve without complication Performed HH - Complete fall risk assessment scale Problem:HH - Falls - Risk of Goal:HH - Knowledge and management of fall prevention measures. Performed HH - I/E fall prevention measures Description: diagnosis/age related changes/prior history of falls: symptoms and side effects of illness/injury/history of falls placing patient at increased risk for falls. may include management of dizziness/orthostasis, impaired functional mobility: supervision for mobility/activity, appropriate footwear and as indicated safe use of assistive device(s), pain affecting level of function: impact of pain on an increased risk of falls and poly pharmacy: side effects of medications placing a patient at high risk for a fall Problem:HH - Falls - Risk of Goal:HH - Knowledge and management of fall prevention measures. Performed HH - Assess vital signs, pulse [...] home/community discharge from homecare Performed HH - I/E management of skin integrity and non-wound impairment Description: skin care Problem:HH - Standard of Care Goal:HH - Achieve care management for a safe to home/community discharge from homecare Performed HH - Assess safety needs of patient (other than falls) Problem:HH - Standard of Care Goal:HH - Achieve care management for a safe to home/community discharge from homecare Performed HH - Assess pain Problem:HH - Pain Goal:HH - Frequency of pain interfering with patient's activity or movement will improve with activity or movement by discharge. Performed HH - I/E pain management Problem:HH - Pain Goal:HH - Frequency of pain interfering with patient's activity or movement will improve with activity or movement by discharge. Performed HH - Assess edema Problem:HH - Edema - Actual or Risk of Goal:HH - Demonstrate/verbalize knowledge of causes, impacts, and risks associated with edema Performed HH - I/E edema management Problem:HH - Edema - Actual or Risk of Goal:HH - Demonstrate/verbalize knowledge of causes, impacts, and risks associated with edema Performed documented in this encounter Care Teams Program Project Analyst Relationship Specialty Start Date End Date Casey Osorio MD [address] [place] [phone] PCP - General Internal Medicine 01/24/25 documented as of this encounter Additional Source Comments The information contained in this document represents components of the legal health record. It is not the complete legal health record.[facility]
--- OUTSIDE RECORDS SUMMARY | 2025-03-12 13:30 | XMS_ITS | Encounter Summary ---
Author Organization [facility] Address [address] [facility] [address] [place] [address] Phone Care Team Providers Care Dry Cleaning Counter Clerk Name Role Phone Casey Osorio MD Primary Care Provid er Reason for Visit * Auth/Cert (Routine) Specialty Diagnoses / Procedures Referred By Silvana tinajero Referred To Contact Referral ID Status Reason Start Date Expiration Date Visits Re quested Visits Authorized [id number] 1 1 Encounter Details Date Type Department Care Team ([facility] Contact Info) Description 03/12/2025 1:30 PM EST Home Care Visit [facility] [address] [place], [place] [phone] Megan Sanabria, PT [address] [place] [address] [email or web address] PT EVALUATION Social History Tobacco Use Types [...] Description 03/15/2025 12:30 PM EST Appointment [facility] [address] [place] [phone] Rose Vega, PT [address] [place] [address] [email or web address] 03/19/2025 12:00 PM EST Appointment [facility] [address] [place] [phone] Lizeth Crump, OT [address] [place] [address] [email or web address] 03/20/2025 12:15 PM EST Appointment [facility] [address] [place] [phone] Sandi Euceda, RN [address] [place] [address] [email or web address] 03/22/2025 10:15 AM EST Appointment [facility] [address] [place] [phone] Rose Vega, PT [address] [place] [address] [email or web address] 03/25/2025 Appointment [facility] [address] [place] [phone] Rose Vega, PT [address] [place] [address] [email or web address] 03/26/2025 1:00 PM EST Appointment [facility] [address] [place] [phone] Lizeth Crump, OT [address] [place] [address] [email or web address] 03/27/2025 1:30 AM EST Appointment [facility] [address] [place] [address] Rose Vega, PT [address] [place] [address] [email or web address] 03/28/2025 1:00 AM EST Appointment [facility] [address] [place] [address] Sandi Euceda, RN [address] [place] [address] [email or web address] 03/28/2025 1:00 PM EST Appointment [facility] [address] [place] [address] Lizeth Crump, OT [address] [place] [address] [email or web address] 04/01/2025 12:45 AM EST Appointment [facility] [address] [place], [place] [phone] Rose Vega, PT [address] [place] [address] [email or web address] 04/02/2025 12:00 PM EST Appointment [facility] [address] [place] [address] Lizeth Crump, OT [address] [place] [address] [email or web address] 04/03/2025 Appointment [facility] [address] [place] [address] Rose Vega, PT [address] [place] [address] [email or web address] 04/04/2025 1:00 AM EST Appointment [facility] [address] [place] [phone] Sandi Euceda, RN [address] [place] [address] [email or web address] 04/04/2025 12:00 PM EST Appointment [facility] [address] [place] [phone] Lizeth Crump, OT [address] [place] [address] 04/11/2025 Appointment [facility] [address] [place] [address] Sandi Euceda, LURDES [address] [place] [address] [email or web address] 04/18/2025 1:00 AM EST Appointment [facility] [address] [place] [phone] Sandi Euceda, RN [address] [place] [address] [email or web address] 04/25/2025 12:30 AM EST Appointment [facility] [address] [place] [phone] Sandi Euceda, LURDES [address] [place] [address] [email or web address] 05/02/2025 12:30 AM EST Appointment [facility] [address] [place] [phone] Sandi Euceda, RN [address] [place] [address] [email or web address] documented as of this encounter Visit Diagnoses [...] to medication errors and/or interactions Performed - I/E medication management: administration, purpose, dosages, preparation, setup, scheduling, side effects, food/drug interactions, and potential complications as indicated Description: Update patient's copy of medication list as needed. Problem: - Medication Management Goal: - Safe medication management, avoid unnecessary harm [...] from homecare Scheduled HH - Assess pain Problem:HH - Pain [...] Performed documented in this encounter Care Teams Dry Cleaning Counter Clerk Relationship Specialty Start Date End Date Casey Osorio MD [address] [place] [phone] PCP - General Internal Medicine 01/24/25 documented as of this encounter Additional Source Comments The information contained in this document represents components of the legal health record. It is not the complete legal health record.[facility]
--- OUTSIDE RECORDS SUMMARY | 2025-03-14 12:00 | XMS_ITS | Encounter Summary ---
Author Organization [facility] Address [address] [facility] [address] [place] [address] Phone Care Team Providers Care Manager Corporate Name Role Phone Casey Osorio MD Primary Care Provid er Reason for Visit * Auth/Cert (Routine) Specialty Diagnoses / Procedures Referred By Silvana tinajero Referred To Contact Referral ID Status Reason Start Date Expiration Date Visits Re quested Visits Authorized [id number] 1 1 Encounter Details Date Type Department Care Team ([facility] st Contact Info) Description 03/14/2025 12:00 PM EST Home Care Visit [facility] [address] [place], [place] [phone] Lizeth Crump, OT [address] [place] [address] [email or web address] OT HOME VISIT Social History Tobacco Use Types [...] Sign Reading Time Taken Comments Blood Pressure 122/68 03/14/2025 12:12 PM EST Pulse 59 03/14/2025 12:12 PM EST Temperature - - Respiratory Rate 16 03/14/2025 12:12 PM EST Oxygen Saturation 99% 03/14/2025 12:12 PM EST Inhaled Oxygen Concentration - - Weight - - Height - - Body Mass Index - - documented in this encounter Plan of Treatment Upcoming Encounters Date Type Department Care Team (Late st Contact Info) Description 03/15/2025 12:30 PM EST Appointment [facility] [address] [place] [phone] Rose Vega, PT [address] [place] [address] 03/19/2025 12:00 PM EST Appointment [facility] [address] [place] [phone] Lizeth Crump, OT [address] [place] [address] 03/20/2025 12:15 PM EST Appointment [facility] [address] [place] [phone] Sandi Euceda, RN [address] [place] [address] 03/22/2025 10:15 AM EST Appointment [facility] [address] [place] [phone] Rose Vega, PT [address] [place] [address] 03/25/2025 Appointment [facility] [address] [place] [phone] Rose Vega, PT [address] [place] [address] 03/26/2025 1:00 PM EST Appointment [facility] [address] [place] [address] Lizeth Crump, OT [address] [place] [address] 03/27/2025 1:30 AM EST Appointment [facility] [address] [place] [address] Rose Vega, PT [address] [place] [address] 03/28/2025 1:00 AM EST Appointment [facility] [address] [place] [address] Sandi Euceda, RN [address] [place] [address] 03/28/2025 1:00 PM EST Appointment [facility] [address] [place] [address] Lizeth Crump, OT [address] [place] [address] 04/01/2025 12:45 AM EST Appointment [facility] [address] [place] [address] Rose Vega, PT [address] [place] [address] 04/02/2025 12:00 PM EST Appointment [facility] [address] [place] [address] Lizeth Crump, OT [address] [place] [address] 04/03/2025 Appointment [facility] [address] [place] [address] Rose Vega, PT [address] [place] [address] 04/04/2025 1:00 AM EST Appointment [facility] [address] [place] [address] Sandi Euceda, LURDES [address] [place] [address] 04/04/2025 12:00 PM EST Appointment [facility] [address] [place] [address] Lizeth Crump OT [address] [place] [address] 04/11/2025 Appointment [facility] [address] [place] [phone] Sandi Euceda RN [address] [place] [address] 04/18/2025 1:00 AM EST Appointment [facility] [address] [place] [phone] Sandi Euceda RN [address] [place] [address] 04/25/2025 12:30 AM EST Appointment [facility] [address] [place] [phone] Sandi Euceda RN [address] [place] [address] 05/02/2025 12:30 AM EST Appointment [facility] [address] [place] [phone] Sandi Euceda RN [address] [place] [address] documented as of this encounter Visit Diagnoses Not on filedocumented in this encounter Home Health Visit - Care Plan Visit Details Visit Type -OT HOME VISIT Discipline -Occupational Therapy Problems Problem Description Start [...] scheduled/document ed in this visit HH - ADL/IADL Impairment and Therapeutic Interventions Disciplines: Occupational Therapy 03/12/2025 Active 1 goal linked to scheduled/document ed intervention Goals Goal Associated Problem Outcome Goal Met? [...] - Standard of Care No HH - Promote higher level of independence with performance of ADLs/IADLs. Description: Patient to be Mod I all functional bathroom transfers by 04/06/25. Patient to be Mod I HEP to facilitate improved activity tolerance for functional tasks by 04/06/25. Patient to be Mod I with recommended DME/AE to improve safe engagement in meaningful activitites by 04/06/25. HH - ADL/IADL Impairment and Therapeutic Interventions Progressing No Interventions Intervention Associated Problem/Goal Status Variance [...] Clinical Focus this Visit & Instruction Provided: Per spouse, PCP recommended use of Advil to treat pain, which caregiver insists patient is allergic to with a previous reaction over 10 years ago of hives and increased BP. Per report, patient too k a dose of advil approximately 30 minutes before OT arrival. Vitals all WNL and no evidence thus far of reaction. Spouse showed OT Youtube videos which are non-weighted designed for individuals with Parkinson's syndrome. Patient able to do some of the e xercises with 1# free weights, but was eager to trial exercises OT brought with 1# free weights in B hands to perform bicep curls, tricep extension, shoulder press, chest press, lateral raises, and rows 10x for 2 sets to faciltiate improved endurance for ADLs. Patient required multiple cues to pace tasks and breath through exercises. Safety with downstairs bathroom reviewed. Patient's typical method of entering the bathroom involved turning walker and shuffling with it behind him and then ambulating int o the small bathroom without the walker to transfer to toilet. Instructed to use RW to enter bathroom and slowly turn and then transfer with use of versa bars from a smaller angle. Patient performed transfer in this manner with S. Instruction Provided t o: patient and caregivers Response to Instruction/Teaching: verbalized understanding Plan for Next Visit Specific Focus & Education Needed: functional transfer training and HEP progression New Orders: Updated Discharge Plan: unchanged HH - I/E management of care in [...] Performed documented in this encounter Care Teams Manager Corporate Relationship Specialty Start Date End Date Casey Osorio MD [address] [place] [address] PCP - General Internal Medicine 01/24/25 documented as of this encounter Additional Source Comments The information contained in this document represents components of the legal health record. It is not the complete legal health record.[facility]
--- OUTSIDE RECORDS SUMMARY | 2025-03-14 12:45 | XMS_ITS | Encounter Summary ---
Author Organization [facility] Address [address] [facility] [address] [place] [address] Phone Care Team Providers Care Emu Farmer Name Role Phone Casey Osorio MD Primary Care Provid er Reason for Visit * Auth/Cert (Routine) Specialty Diagnoses / Procedures Referred By Silvana tinajero Referred To Contact Referral ID Status Reason Start Date Expiration Date Visits Re quested Visits Authorized [id number] 1 1 Encounter Details Date Type Department Care Team ([facility] Contact Info) Description 03/14/2025 12:45 PM EST Home Care Visit [facility] [address] [place], [place] [phone] Sandi Euceda, LURDES [address] [place] [address] [email or web address] SN HOME VISIT Social History Tobacco Use [...] Sign Reading Time Taken Comments Blood Pressure 126/64 03/14/2025 1:00 PM EST Pulse 58 03/14/2025 1:00 PM EST Temperature 36.2 C (97.2 F) 03/14/2025 1:00 PM EST Respiratory Rate 18 03/14/2025 1:00 PM EST Oxygen Saturation 96% 03/14/2025 1:00 PM EST Inhaled Oxygen Concentration - - Weight - - Height - - Body Mass Index - - documented in this encounter Plan of Treatment Upcoming Encounters Date Type Department Care Team (Late st Contact Info) Description 03/15/2025 12:30 PM EST Appointment [facility] [address] [place] [phone] Rose Vega, PT [address] [place] [address] 03/19/2025 12:00 PM EST Appointment [facility] [address] [place] [phone] Lizeth Crump, OT [address] [place] [address] 03/20/2025 12:15 PM EST Appointment [facility] [address] [place] [phone] Sandi Euceda, RN [address] [place] [address] 03/22/2025 10:15 AM EST Appointment [facility] [address] [place] [phone] Rose Vega, PT [address] [place] [address] 03/25/2025 Appointment [facility] [address] [place] [phone] Rose Vega, PT [address] [place] [address] 03/26/2025 1:00 PM EST Appointment [facility] [address] [place] [address] Lizeth Crump, OT [address] [place] [address] 03/27/2025 1:30 AM EST Appointment [facility] [address] [place] [address] Rose Vega, PT [address] [place] [address] 03/28/2025 1:00 AM EST Appointment [facility] [address] [place] [address] Sandi Eucead, RN [address] [place] [address] 03/28/2025 1:00 PM EST Appointment [facility] [address] [place] [address] Lizeth Crump, OT [address] [place] [address] 04/01/2025 12:45 AM EST Appointment [facility] [address] [place] [address] Rose Vega, PT [address] [place] [address] 04/02/2025 12:00 PM EST Appointment [facility] [address] [place] [address] Lizeth Crump, OT [address] [place] [address] 04/03/2025 Appointment [facility] [address] [place] [address] Rose Vega, PT [address] [place] [address] 04/04/2025 1:00 AM EST Appointment [facility] [address] [place] [phone] Sandi Euceda, LURDES [address] [place] [address] 04/04/2025 12:00 PM EST Appointment [facility] [address] [place] [phone] Lizeth Crump, OT [address] [place] [address] 04/11/2025 Appointment [facility] [address] [place] [phone] Sandi Euceda, LURDES [address] [place] [address] 04/18/2025 1:00 AM EST Appointment [facility] [address] [place] [phone] Sandi Euceda, LURDES [address] [place] [address] 04/25/2025 12:30 AM EST Appointment [facility] [address] [place] [phone] Sandi Euceda, LURDES [address] [place] [address] 05/02/2025 12:30 AM EST Appointment [facility] [address] [place] [phone] Sandi Euceda, LURDES [address] [place] [address] documented as of this encounter Visit Diagnoses Not on filedocumented in this encounter Home Health Visit - Care Plan Visit Details Visit Type -SN HOME VISIT Discipline -Prison Problems Problem Description Start Date Status Goals [...] scheduled/document ed in this visit HH - Respiratory Status - Impaired Disciplines: All Active Home Health Disciplines 03/07/2025 [...] Planning - Knowledge of No HH - Demonstrate/verbalize causes, impacts, and management of respiratory condition resulting in adequate oxygenation and ventilation HH - Respiratory Status - Impaired No HH - Achieve care management for a safe to home/community discharge from homecare HH - Standard of Care No HH - Demonstrate/verbalize knowledge of causes, [...] this Visit & Instruction Provided: SNV for CVP assessment and pain mgm. pt saw PCP yesterday and was advised to try advil again to see if he is allergic. pt took 1 advil 200mg at 11:25am and has had no reaction. BP WNL, denies itch yness and no hives present. SN advised to take another and if reaction does occur, go to ED since the pt has no epipen in the home. the 200mg pill did not touch his sciatica pain at all per reported by pt. pt continues to have SOB upon activity but lungs are clear. denies any visual changes or headaches. +1 pitting edema to BLE remains, SN edu on edema mgm. 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 Instruction Provided to: patient and cg Response to Instruction/Teaching: Is partially able to teach back topics as evidenced by verbal recall. Plan for Next Visit Specific Focus & Education Needed: pain, resp assess New Orders: NA Updated Discharge Plan: when the pt/cg is knowledgeable of what to r eport to provider HH - I/E management of [...] emergency related situation. Performed HH - I/E respiratory disease management Description: breathing techniques, energy conservation, positioning and self-monitoring Problem:HH - Respiratory Status - Impaired Goal:HH - Demonstrate/verbalize causes, impacts, and management of respiratory condition resulting in adequate oxygenation and ventilation Performed HH - Assess vital signs, pulse [...] discharge from homecare Performed HH - Assess edema Problem:HH - Edema - Actual or Risk of Goal:HH - Demonstrate/verbalize knowledge of causes, impacts, and risks associated with edema Performed HH - I/E edema management Problem:HH - Edema - Actual or Risk of Goal:HH - Demonstrate/verbalize knowledge of causes, impacts, and risks associated with edema Performed documented in this encounter Care Teams Emu Farmer Relationship Specialty Start Date End Date Casey Osorio MD [address] [place] [address] PCP - General Internal Medicine 01/24/25 documented as of this encounter Additional Source Comments The information contained in this document represents components of the legal health record. It is not the complete legal health record.[facility]
--- OUTSIDE RECORDS SUMMARY | 2025-03-15 12:12 | XMS_ITS | Encounter Summary ---
Author Organization [facility] Address [address] [facility] [address] [place] [address] Phone Care Team Providers Care Galley Worker Name Role Phone Casey Osorio MD Primary Care Provid er Reason for Visit * Auth/Cert (Routine) Specialty Diagnoses / Procedures Referred By Silvana tinajero Referred To Contact Referral ID Status Reason Start Date Expiration Date Visits Re quested Visits Authorized [id number] 1 1 Encounter Details Date Type Department Care Team ([facility] st Contact Info) Description 03/11/2025 Home Care Visit [facility] [address] [place] [address] Lizeth Crump, OT [address] [place] [address] [email or web address] TELEPHONE ENCOUNTER Social History Tobacco Use Types [...] Description 03/15/2025 12:30 PM EST Appointment [facility] [address] [place] [phone] Rose Vega, PT [address] [place] [address] [email or web address] 03/19/2025 12:00 PM EST Appointment [facility] [address] [place] [address] Lizeth Crump, OT [address] [place] [address] [email or web address] 03/20/2025 12:15 PM EST Appointment [facility] [address] [place] [phone] Sandi Euceda, RN [address] [place] [address] [email or web address] 03/22/2025 10:15 AM EST Appointment [facility] [address] [place] [phone] Rose Vega, PT [address] [place] [address] [email or web address] 03/25/2025 Appointment [facility] [address] [place] [phone] Rose Vega, PT [address] [place] [address] [email or web address] 03/26/2025 1:00 PM EST Appointment [facility] [address] [place] [phone] Lizeth Crump, OT [address] [place] [address] [email or web address] 03/27/2025 1:30 AM EST Appointment [facility] [address] [place] [phone] Rose Vega, PT [address] [place] [address] [email or web address] 03/28/2025 1:00 AM EST Appointment [facility] [address] [place] [address] Sandi Euceda, RN [address] [place] [address] [email or web address] 03/28/2025 1:00 PM EST Appointment [facility] [address] [place] [address] Lizeth Crump, OT [address] [place] [address] [email or web address] 04/01/2025 12:45 AM EST Appointment [facility] [address] [place] [address] Rose Vega, PT [address] [place] [address] [email or web address] 04/02/2025 12:00 PM EST Appointment [facility] [address] [place] [address] Lizeth Crump, OT [address] [place] [address] [email or web address] 04/03/2025 Appointment [facility] [address] [place] [address] Rose Vega, PT [address] [place] [address] [email or web address] 04/04/2025 1:00 AM EST Appointment [facility] [address] [place] [address] Sandi Euceda, RN [address] [place] [address] [email or web address] 04/04/2025 12:00 PM EST Appointment [facility] [address] [place] [address] Lizeth Crump, OT [address] [place] [address] 04/11/2025 Appointment [facility] [address] [place] [address] Sandi Euceda RN [address] [place] [address] [email or web address] 04/18/2025 1:00 AM EST Appointment [facility] [address] [place] [phone] Sandi Euceda RN [address] [place] [address] [email or web address] 04/25/2025 12:30 AM EST Appointment [facility] [address] [place] [phone] Sandi Euceda RN [address] [place] [address] [email or web address] 05/02/2025 12:30 AM EST Appointment [facility] [address] [place] [phone] Sandi Euceda RN [address] [place] [address] [email or web address] documented as of this encounter Visit Diagnoses Not on filedocumented in this encounter Care Teams Galley Worker Relationship Specialty Start Date End Date Casey Osorio MD [address] [place] [address] PCP - General Internal Medicine 01/24/25 documented as of this encounter Additional Source Comments The information contained in this document represents components of the legal health record. It is not the complete legal health record.[facility]
--- OUTSIDE RECORDS SUMMARY | 2025-03-15 12:12 | XMS_ITS | Clinical Summary ---
Author Organization [facility] Address [address] [place], [place] [id number] Phone Care Team Providers Care Developmental Education Instructor Name Role Phone Casey Osorio MD Primary Care Provid er Allergies Active Allergy Reactions Criticality Noted Date Comments Aspirin Hives 01/24/2025 Other Reaction(s): Ibuprofen Ibuprofen 12/27/2023 Penicillin 12/27/2023 Medications carbidopa-levod opa (SINEMET) 25-100 mg per tablet TAKE 1 TAB AT 10AM&4PM.TAKE 2 TABS AT 1PM,7PM&10 PM.TAKE 1 TAB [...] 100 mg by mouth daily. 02/28/2025 Active ibuprofen (ADVIL,MOTRIN) 200 MG tablet Take 100 mg by mouth every 6 (six) hours as needed for pain (specific location in comments) (back and hip). 03/14/2025 Active Active Problems No known active problems Encounters Date Type Department Care Team Description 03/14/2025 12:45 PM EST Home Care Visit [facility] [address] [place] [address] Sandi Euceda, LURDES SN HOME VISIT 03/14/2025 12:00 PM EST Home Care Visit [facility] [address] [place] [address] Lizeth Crump, OT OT HOME VISIT 03/12/2025 1:30 PM EST Home Care Visit [facility] [address] [place] [address] Megan Sanabria, PT PT EVALUATION 03/12/2025 1:00 PM EST Home Care Visit [facility] [address] [place] [address] Sandi Euceda RN SN HOME VISIT 03/12/2025 12:15 PM EST Home Care Visit [facility] [address] [place] [address] Lizeht Crump, OT OT EVALUATION 03/11/2025 Home Care Visit [facility] [address] [place] [address] Lizeth Crump, OT TELEPHONE ENCOUNTER 03/07/2025 12:30 PM EST Home Care Visit [facility] [address] [place] [address] Carissa Calzada, RN SN OASIS START OF CARE (SOC) 03/07/2025 Plan of Care Documentation [facility] [address] [place] [address] 02/22/2025 Orders Only [facility] [address] [place] [address] Homehealth, Demetri Okeefe MD 01/24/2025 1:50 PM EDT Office Visit [facility] [address] [address] Letitia Brennan, VENEER TAPER COVID-19 (Primary Dx); Fever, unspecified from Last [...] Description 03/15/2025 12:30 PM EST Appointment [facility] [address] [place], [place] [phone] Rose Vega, PT [address] [place] [address] 03/19/2025 12:00 PM EST Appointment [facility] [address] [place], [place] [phone] Lizeth Crump, OT [address] [place] [address] [email or web address] 03/20/2025 12:15 PM EST Appointment [facility] [address] [place] [address] Sandi Euceda, RN [address] [place] [address] [email or web address] 03/22/2025 10:15 AM EST Appointment [facility] [address] [place] [address] Rose Vega, PT [address] [place] [address] [email or web address] 03/25/2025 Appointment [facility] [address] [place] [address] Rose Vega, PT [address] [place] [address] [email or web address] 03/26/2025 1:00 PM EST Appointment [facility] [address] [place] [address] Lizeth Crump, OT [address] [place] [address] [email or web address] 03/27/2025 1:30 AM EST Appointment [facility] [address] [place] [phone] Rose Vega, PT [address] [place] [address] [email or web address] 03/28/2025 1:00 AM EST Appointment [facility] [address] [place] [address] Sandi Euceda, RN [address] [place] [address] [email or web address] 03/28/2025 1:00 PM EST Appointment [facility] [address] [place] [address] Lizeth Crump, OT [address] [place] [address] [email or web address] 04/01/2025 12:45 AM EST Appointment [facility] [address] [place] [address] Rose Vega, PT [address] [place] [address] 04/02/2025 12:00 PM EST Appointment [facility] [address] [place] [address] Lizeth Crump, OT [address] [place] [address] [email or web address] 04/03/2025 Appointment [facility] [address] [place] [address] Rose Vega, PT [address] [place] [address] [email or web address] 04/04/2025 1:00 AM EST Appointment [facility] [address] [place] [address] Sandi Euceda, RN [address] [place] [address] [email or web address] 04/04/2025 12:00 PM EST Appointment [facility] [address] [place] [address] Lizeth Crump, OT [address] [place] [address] [email or web address] 04/11/2025 Appointment [facility] [address] [place] [address] Sandi Euceda, RN [address] [place] [address] [email or web address] 04/18/2025 1:00 AM EST Appointment [facility] [address] [place] [address] Sandi Euceda RN [address] [place] [address] 04/25/2025 12:30 AM EST Appointment [facility] [address] [place], [place] [phone] Sandi Euceda RN [address] [place] [address] 05/02/2025 12:30 AM EST Appointment [facility] [address] [place], [place] [phone] Sandi Euceda RN [address] [place] [address] Health Maintenance Due Date Last Done Comments Adult Td,Tdap Booster 1945 CREATININE LEVEL 1945 LIPID PANEL 1945 DEPRESSION SCREENING 1957 SMOKING Hx and SMOKELESS TOB ACCO SCREENING 1958 HEPATITIS C SCREENING 07/01/1963 PNEUMOCOCCAL VACCINES (50+ y ears) (1 of 1 - PCV) 07/01/1995 ZOSTER VACCINES (1 of 2) 07/01/1995 RSV VACCINE (1 - 1-dose 75+ series) 2020 INFLUENZA VACCINE (#1) 2024 COVID-19 VACCINE ( - 2024-2 6 season) 2024 HEPATITIS A [...] DK YELLOW [facility] TURBIDITY Slightly Cloudy [facility] GLUCOSE, POCT Negative Negative [facility] KETONE, POCT 1+(A) Negative [facility] OCCULT BLOOD, POCT Negative Negative [facility] SPECIFIC GRAVITY, POCT 1.020 1.001 - 1.030 [facility] ALBUMIN, POCT 2+(A) Negative [facility] Bili Negative Negative [facility] Urobilinogen 0.2 <1.0 [facility] NITRITE, POCT Negative Negative [facility] PH, POCT 5.5 5.0 - 8.0 [facility] WBC SCREEN, POCT Negative Negative [facility] 01/24/2025 2:29 PM EDT 01/24/2025 2:32 PM EDT us Letitia Brennan VENEER TAPER LAB POCT ENTER/EDIT ORDERAB LES Final Result [facility] [address] [address], [facility] [phone] * (ABNORMAL) POCT COVID-19 RT-PCR/Influenza A & B/RSV (Cepheid) (01/24/2025 2:16 PM EDT) RSV PCR Negative Negative [facility] SARS-CoV-2 (COVID-19) Positive(A) Negative [facility] POC Influenza A PCR Negative Negative [facility] POC Influenza B PCR Negative Negative [facility] 01/24/2025 2:16 PM EDT 01/24/2025 2:56 PM EDT Letitia Brennan VENEER TAPER LAB POCT ENTER/EDIT ORDERAB LES Final Result [facility] [address] [address], [facility] [phone] from Last 3 Months Insurance MEDICARE PPO BLUE REPLACEMENT [facility] MEDICARE PPO BLUE REPLACEMENT [facility] MEDICARE PPO BLUE REPLACEMENT [facility] MEDICARE PPO BLUE REPLACEMENT [facility] MEDICARE PPO BLUE REPLACEMENT [place] MED[place] P[place] BLUE REPLACEMENT Care Teams Developmental Education Instructor Relationship Specialty Start Date End Date Casey Osorio MD [address] [place] [phone] PCP - General Internal Medicine 01/24/25 Additional Source Comments The information contained in this document represents components of the legal health record. It is not the complete legal health record.[facility]
[2025-03-15 14:15] LABS: Appearance Urine Clear; Glucose Urine UA Negative (Negative); PH 6.5 (5.0-9.0); Specific Gravity - Urine 1.010 (1.005-1.025)
[2025-03-15 14:49] LABS: Baso%MD 0.6 %; Eos%MD 4.9 %; Hematocrit 31.2 % (42.0-52.0); Hemoglobin 9.5 g/dl (14.0-18.0); IG%MD 1.1 %; Lymph%MD 19.2 %; Mean Corpuscular HGB Conc 30.4 g/dl (31.0-36.0); Mean Corpuscular Hemoglobin 32.9 pg (27.0-33.0); Mean Corpuscular Volume 108.0 fL (80.0-98.0); Mono%MD 8.3 %; NRBC Abs Auto 0.000 X10*3/uL (0.0-0.012); NRBC Pct Auto 0.0 /100WBC (0.0-0.2); Neut%MD 65.9 %; Platelet Count 376 X10*3/uL (160-400); Red Blood Count 2.89 X10*6/uL (4.60-5.80); Reticulocytes Absolute 0.105 X10*6/uL (0.026-0.095); White Blood Count 7.1 X10*3/uL (4.8-10.8)
[2025-03-15 15:32] LABS: Folate 9.8 ng/mL (> or = 4.0); Vitamin B12 520 pg/mL (200-900)
[2025-03-15 15:44] LABS: Eosinophils Absolute Manual 0.1 X10*3/uL (0.0-0.4); Eosinophils Percent Manual 2 % (0-4); Lymphocytes Absolute Manual 0.9 X10*3/uL (1.2-4.9); Lymphocytes Percent Manual 13 % (20-40); Monocytes Absolute Manual 0.1 X10*3/uL (0.1-1.2); Monocytes Percent Manual 2 % (2-11); Neutrophils Percent Manual 83 % (45-73)
[2025-03-15 15:45] LABS: Macrocytosis 1+ (5-14) /OIF; RBC Morphology NOTED
[2025-03-15 15:46] LABS: Acanthocytes 1+ (0-2) /OIF; Burr Cells 1+ (0-2) /OIF
[2025-03-15 15:48] LABS: Band Neutrophils Percent 0 % (3-5); Neutrophils Absolute Manual 5.9 X10*3/uL (2.0-8.3)
== END 2025-03-15 11:20 | disposition home or self-care (01) ==
LOC: HO.WFDLDS 11:19
PROVIDERS: Visit Provider Internal Medicine
DX: D53.9 Nutritional anemia, unspecified (principal); D50.9 Iron deficiency anemia, unspecified
CPT/HCPCS: 36415; 81003; 82607; 82746; 83010; 83615; 83921; 85007; 85027; 85045

== ENCOUNTER 2025-03-27 15:03 | Outpatient (AMB) | payer MEDICARE, SELFPAY ==
--- OUTSIDE RECORDS SUMMARY | 2025-03-22 13:00 | XMS_ITS | Encounter Summary ---
Author Organization [facility] Address [address] [facility] [address] [place] [phone] Phone Care Team Providers Care International Account Representative Name Role Phone Casey Osorio MD Primary Care Provid er Reason for Visit * Reason Comments Weakness * Auth/Cert (Routine) Specialty Diagnoses / Procedures Referred By Silvana tinajero Referred To Contact Referral ID Status Reason Start Date Expiration Date Visits Re quested Visits Authorized [id number] 1 1 Encounter Details Date Type Department Care Team ([facility] st Contact Info) Description 03/22/2025 1:00 PM EST Home Care Visit [facility] [address] [place] [address] Rose Vega, PT [address] [place] [address] [email or web address] PT HOME VISIT Social History Tobacco Use Types [...] Sign Reading Time Taken Comments Blood Pressure 136/78 03/22/2025 1:07 PM EST Pulse 66 03/22/2025 1:07 PM EST Temperature 36.5 C (97.7 F) 03/22/2025 1:07 PM EST Respiratory Rate 18 03/22/2025 1:07 PM EST Oxygen Saturation 96% 03/22/2025 1:07 PM EST Inhaled Oxygen Concentration - - Weight - - Height - - Body Mass Index - - documented in this encounter Plan of Treatment Upcoming Encounters Date Type Department Care Team (Late st Contact Info) Description 03/28/2025 12:00 PM EST Home Care Visit [facility] [address] [place] [phone] Sandi Euceda, RN [address] [place] [address] 03/28/2025 1:00 PM EST Home Care Visit [facility] [address] [place] [phone] Lizeth Crump, OT [address] [place] [address] 04/01/2025 12:45 PM EST Home Care Visit [facility] [address] [place] [address] Rose Vega, PT [address] [place] [address] 04/02/2025 12:00 PM EST Home Care Visit [facility] [address] [place] [phone] Lizeth Crump, OT [address] [place] [address] 04/03/2025 Home Care Visit [facility] [address] [place] [phone] Rose Vega, PT [address] [place] [address] 04/04/2025 1:00 AM EST Home Care Visit [facility] [address] [place] [phone] Sandi Euceda, LURDES [address] [place] [address] 04/05/2025 12:00 PM EST Home Care Visit [facility] [address] [place] [phone] Lizeth Crump, OT [address] [place] [address] 04/11/2025 Home Care Visit [facility] [address] [place] [phone] Sandi Euceda, LURDES [address] [place] [address] 04/18/2025 1:00 AM EST Home Care Visit [facility] [address] [place] [phone] Sandi Euceda, LURDES [address] [place] [address] 04/25/2025 12:30 AM EST Home Care Visit [facility] [address] [place] [phone] Sandi Euceda, LURDES [address] [place] [address] 05/02/2025 12:30 AM EST Appointment [facility] [address] [place] [phone] Sandi Euceda, LURDES [address] [place] [address] documented as of this encounter Visit Diagnoses Not on filedocumented in this encounter Home Health Visit - Care Plan Visit Details Visit Type -PT HOME VISIT Discipline -Physical Therapy Problems Problem Description Start [...] - Mobility and Activity Tolerance - Impaired Progressing No Interventions Intervention Associated Problem/Goal Status [...] rec will be completed at each visit Problem: - Medication Management Goal: - Safe medication management, avoid unnecessary harm related to medication errors and/or interactions Performed HH - Focus of care, teaching completed and plan for next visit Problem:HH - Focus of Care and Teaching Goal:HH - Communication and collaboration to achieve patient goals Performed Primary Clinical Focus this Visit & Instruction Provided: Patient sitting in chair in living room and reports continued right LE radiating pain from hip to foot. He reports pain controlled in sitting but once he is standing it increases to 8-9/10. r eports minimal ambulation over past several days. She had trial use of gabapentin but patient notably lethargic and due to her concern of him falling she did not give to him today. Pt reports gabapentin did not derease his pain. He has been treating his pain with Tylenol. asking several questions regarding PT opinion on pain control, MD to call for assessment, etc. He had been set up to be seen at the pain clinic through [facility] referral prior to hospitalization with PT recommending contact [facility] and/or pain clinic for assessment. Gait training: patient initially ambulating with walker with short step length with forceful toe contact onto floor with potential to increase right LE discomfort. PT lowered height of walker to allow patient to u tilize it more for weight-bearing assistance and cued him for a longer step length with improvement noted. Patient reporting less pain with ambulation with longer step length and increased foot clearance as well as with increased time/distance. PT recomm ending patient ambulate every hour during the day to promote mobility and decrease pain. Patient was encouraged to stop if ambulation significantly increases his discomfort. Transfers: completed 10 sit to stand transfers from armchair with noted incre ase in left LE weight-bearing versus right. Cued to equalize weight-bearing but patient resistant due to increased reports of pain. HEP: instructed patient in hamstring stretch from seated position with right LE extended in front and with hip flexion to point of tightness/discomfort with 15 second hold for three repetitions. also completed standing bilateral hip flexion, hip abduction, and heel raise. With subsequent repetitions patient did report decrease in discomfort. Seated rest between each exer cise due to SOB. O2 sat decreasing to 88% at times but returns to baseline within one minute. Stairs: completed up/down 14 steps with bilateral rail. Patient needing several standing rest breaks when ascending due to SOB. O2 sat decreased into low 80s temporarily and returned to baseline within two minutes. When descending, he was able to complete outstanding rest with mild SOB and O2 decreasing to 88%. Instruction Provided to: patient Response to Instruction/Teaching: Is partially able to tea ch back topics. Plan for Next Visit Specific Focus & Education Needed: progress HEP and gait New Orders: none Updated Discharge Plan: transition to self care vs outpatient PT HH - I/E management of care in [...] emergency related situation. Performed HH - I/E fall prevention measures [...] discharge from homecare Performed HH - I/E discharge plan Problem:HH [...] or movement by discharge. Performed HH - Therapeutic interventions, as indicated: Description: balance training, bed mobility training, breathing exercises, durable medical equipment training, gait/stair training, neuromuscular retraining/tone management, and desensitization techniques, therapeutic exercise/home exercise program and transfer train ing, including bathroom transfers Problem:HH - Mobility and Activity Tolerance - Impaired Goal:HH - Demonstrate maximum mobility and activity level for safe function Performed This visit transfers, gait, strengthening, balance, home safety, falls prevention HH - I/E therapeutic function/activity: Description: As indicated: activity promotion and management, functional mobility training, therapeutic exercise and home exercise program, device use. Problem:HH - Mobility and Activity Tolerance - Impaired Goal:HH - Demonstrate maximum mobility and activity level for safe function Performed HH - Assess therapeutic function/activity and need for durable medical equipment Problem:HH - Mobility and Activity Tolerance - Impaired Goal:HH - Demonstrate maximum mobility and activity level for safe function Performed documented in this encounter Care Teams International Account Representative Relationship Specialty Start Date End Date Casey Osorio MD [address] [place] [phone] PCP - General Internal Medicine 01/24/25 documented as of this encounter Additional Source Comments The information contained in this document represents components of the legal health record. It is not the complete legal health record.[facility]
--- OUTSIDE RECORDS SUMMARY | 2025-03-25 11:45 | XMS_ITS | Encounter Summary ---
Author Organization [facility] Address [address] [facility] [address] [place] [phone] Phone Care Team Providers Care Tipple Repairer Name Role Phone Casey Osorio MD Primary Care Provid er Reason for Visit * Reason Comments Weakness * Auth/Cert (Routine) Specialty Diagnoses / Procedures Referred By Silvana tinajero Referred To Contact Referral ID Status Reason Start Date Expiration Date Visits Re quested Visits Authorized [id number] 1 1 Encounter Details Date Type Department Care Team ([facility] st Contact Info) Description 03/25/2025 11:45 AM EST Home Care Visit [facility] [address] [place] [phone] Rose Vega, PT [address] [place] [address] [email or web address] PT HOME VISIT Social History Tobacco Use [...] Sign Reading Time Taken Comments Blood Pressure 120/76 03/25/2025 12:15 PM EST Pulse 58 03/25/2025 12:15 PM EST Temperature 36.4 C (97.6 F) 03/25/2025 12:15 PM EST Respiratory Rate 18 03/25/2025 12:15 PM EST Oxygen Saturation 97% 03/25/2025 12:15 PM EST Inhaled Oxygen Concentration - - Weight - - Height - - Body Mass Index - - documented in this encounter Plan of Treatment Upcoming Encounters Date Type Department Care Team (Late st Contact Info) Description 03/28/2025 12:00 PM EST Home Care Visit [facility] [address] [place] [phone] Sandi Euceda, RN [address] [place] [address] 03/28/2025 1:00 PM EST Home Care Visit [facility] [address] [place] [phone] Lizeth Crump, OT [address] [place] [address] 04/01/2025 12:45 PM EST Home Care Visit [facility] [address] [place] [address] Rose Vega, PT [address] [place] [address] 04/02/2025 12:00 PM EST Home Care Visit [facility] [address] [place] [phone] Lizeth Crump, OT [address] [place] [address] 04/03/2025 Home Care Visit [facility] [address] [place] [phone] Rose Vega, PT [address] [place] [address] 04/04/2025 1:00 AM EST Home Care Visit [facility] [address] [place] [phone] Sandi Euceda, LURDES [address] [place] [address] 04/05/2025 12:00 PM EST Home Care Visit [facility] [address] [place] [phone] Lizeth Crump, OT [address] [place] [address] 04/11/2025 Home Care Visit [facility] [address] [place] [phone] Sandi Euceda, LURDES [address] [place] [address] 04/18/2025 1:00 AM EST Home Care Visit [facility] [address] [place] [phone] Sandi Euceda, LURDES [address] [place] [address] 04/25/2025 12:30 AM EST Home Care Visit [facility] [address] [place] [phone] Sandi Euceda, LURDES [address] [place] [address] 05/02/2025 12:30 AM EST Appointment [facility] [address] [place] [phone] Sandi Euceda, LURDES [address] [place] [address] documented as of this encounter Visit Diagnoses [...] this Visit & Instruction Provided: Patient sitting with in living room at time of PT arrival. Patient reports he felt significantly better after last PT session and had a good day on Tuesday. He reports an increase in pain to day which he rates at 9/10 with weight-bearing exercises with pain at right hip and radiating down right leg. has called PCP office with no callback. PT recommended she attempt to contact [facility] as he has been seen for a similar pain there before. Nickie bacon reports no falls. He continues to use walker for support. SOB noted with activity. Gait training: patient ambulated at start of visit with walker with a significantly decreased step length with lack of foot clearance noted. He was hitting feet ve ry hard into floor and complaining of increased hip pain. Patient cued for longer step length with difficulty/resistanc e with patient stating he had too much pain. At end of session, patient again ambulated with a significant improvement in step length, posture, and foot clearance. He continued to report 9/10 pain but notable improvement in functional mobility noted. Transfers: completed 10 sit to stand transfers with bilateral UE support. Cued for transition to full standing as patient initially rem aining in slightly flexed posture. When transitioning from walking with walker to sitting he frequently benefited from cues for a full term and for reaching back with bilateral UE. HEP: reviewed HEP as provided at last visit to assess carryover and pr ovide cues for best practice. He completed seated right hamstring stretch with cues for leg placement into full knee extension before reaching forward. He was able to tolerate three sets of 15 seconds. He states he had been completing all exercise exerci ses on handout however then noted that he was completing exercises in sitting versus standing. Encouraged him to complete all strengthening exercises in standing at walker or at kitchen counter. He completed standing hip flexion, hip abduction, and heel raises. Initially, patient with minimal ability to lift feet from floor but with subsequent repetitions he was able to improve his dynamics. PT encouraging him to complete exercises twice daily and to monitor symptoms after completion. Balance: comple santiago reaching across midline with 1 UE for support and working to increase weight shift with each subsequent reach. Completed 10 times on each side. Steps: patient asked to complete step up/down to bottom stair which he initially felt he would be unabl e to complete. He was heavily reliant on walker when walking towards stairs and was resistant to any weight-bearing on right LE. Once he transitioned from walker to holding stair rails he completed step up/down with left LE lead with good weight-bearing and stability noted with right SLS for left LE movement. Instruction Provided to: patient Response to Instruction/Teaching : Is partially able to teach back topics. Plan for Next Visit Specific Focus & Education Needed: ? MD appt for assessment of back pain New Orders: none Updated Discharge Plan: transition to outpatient vs self care HH - I/E management of care in [...] fall Problem: - Falls - Risk of Goal:HH - Knowledge and management of fall prevention measures. Performed HH - Assess vital signs, pulse oximetry, pain, and as indicated, orthostatic vital signs Description: use agency-specific parameters Problem: - Standard of Care Goal: - Achieve care management for a safe to home/community discharge from homecare Performed HH - Assess skin integrity Problem: - Standard of Care Goal: - Achieve care management for a safe to home/community discharge from homecare Performed HH - I/E discharge plan Problem:HH - Standard of Care Goal:HH - Achieve care management for a safe to home/community discharge from homecare Performed HH - Assess pain Problem: - Pain Goal:HH - Frequency of pain interfering with patient's activity or movement will improve with activity or movement by discharge. Performed - I/E pain management Problem: - Pain Goal:HH - Frequency of pain interfering with patient's activity or movement will improve with activity or movement by discharge. Performed - Therapeutic interventions, as indicated: Description: balance training, bed mobility training, breathing exercises, durable medical equipment training, gait/stair training, neuromuscular retraining/tone management, and desensitization techniques, therapeutic exercise/home exercise program and transfer train ing, including bathroom transfers Problem: - Mobility and Activity Tolerance - Impaired Goal:HH - Demonstrate maximum mobility and activity level for safe function Performed This visit transfers, gait, balance, strengthening HH - I/E therapeutic function/activity: Description: As indicated: activity promotion and management, functional mobility training, therapeutic exercise and home exercise program, device use. Problem: - Mobility and Activity Tolerance - Impaired Goal:HH - Demonstrate maximum mobility and activity level for safe function Performed HH - Assess therapeutic function/activity and need for durable medical equipment Problem:HH - Mobility and Activity Tolerance - Impaired Goal:HH - Demonstrate maximum mobility and activity level for safe function Performed documented in this encounter Care Teams Tipple Repairer Relationship Specialty Start Date End Date Casey Osorio MD [address] [place] [phone] PCP - General Internal Medicine 01/24/25 documented as of this encounter Additional Source Comments The information contained in this document represents components of the legal health record. It is not the complete legal health record.[facility]
--- NOTE | 2025-03-27 15:30 | A.OFFPC_ITS ---
Vital Signs 03/27/25 15:31 Height 5 ft 8.9 in Weight 236 lb 15.951 oz BMI 35.1 BP 120/58 L Blood Pressure Location Lt brachial Position Sitting Pulse 60 Pulse Source Pulse Oximeter Temp 97.5 F Temp Source Temporal Artery Scan Pulse Oximetry (%) 96 Oxygen Delivery Method Room Air Intake Visit Reasons: follow up Intake Note: Patient is here to follow up on Right leg pain. Table Games Dual Rate Supervisor Required: No Jig And Fixture Maker: Present Accompanied by: Spouse Allergies aspirin Allergy (Mild, Verified 04/09/25 20:32) Unknown ibuprofen Allergy (Mild, Verified 04/09/25 20:32) Unknown Penicillins Allergy (Mild, Verified 04/09/25 20:32) Unknown Medication List - Last Reconciled 04/09/25 by Casey Osorio MD apixaban (Eliquis) 5 mg PO BID ascorbic acid (vitamin C) mg PO carbidopa-levodopa 25-100 mg 1 tab at 10am 2 tabs at 1pm 4 PM 7pm 10 pm cholecalciferol (vitamin D3) 50 mcg PO DAILY gabapentin 100 mg PO BEDTIME 30 days hydrocortisone 2.5% 1 appl topical BID metoprolol succinate ER 50 mg PO DAILY pantoprazole 40 mg PO DAILY rasagiline 1 mg PO DAILY 90 days trihexyphenidyl 2 mg PO DAILY 90 days Tobacco use date assessed: 03/27/25 Fall risk assessment: No Falls in past year Last assessed Fall Risk: 03/27/25 Dental Screening Dental Screen Date: 10/11/24 HPI HPI Comments History of Present Illness Details History of Present Illness - The patient is a 79 year old individua l presenting for follow-up of right leg pain. - The patient reports persistent pain in the right leg, extending from the hip to the ankle, which has not improved. [7, 16] The patient fell and broke the right hip about two years ago, which was treated with a hip replacement. [102, 106] Post-operatively, the patient was on gabapentin 100 mg for about a year and a half for night tremors, which was stopped in November or December due to side effects including excessive drowsiness and immobility. [20, 22, 29, 110, 111] The leg pain reportedly worsened after discontinuing gabapentin. [25, 29] Prior to a recent hospitalization, the patient saw [facility] for the p ain, was diagnosed with sciatica, and received a course of prednisone with minimal relief. [8, 10, 53] The patient also had a fall after this orthopedic visit. [16] - The patient's mobility has declined si gnificantly; before the hospitalization, the patient used a cane, and now uses a walker full-time. [34, 35] The pain began to worsen after the patient was discharged from the hospital and rehab. [13, 16] The patient had been receiving physical therapy for over a year for Parkinson's disease, and the physical therapist had noted the pain prior to the orthopedic consultation. [87, 107] - The patient was recently hospitalized for 19 days for pneumonia, during which the patient was mostly bedridden. [11, 12, 15] This hospitalization led to new diagnoses of atrial fibrillation and anemia. [43, 61] The patient is now on Eliquis for AFib. [42] During the hospital stay, the patient had black stools, but no endoscopic evaluation was performed. [62, 63, 70] The patient's hemoglobin was normal in September but is now low and has not fully recovered. [63, 64] - Past medical history is significant fo r Parkinson's disease, diagnosed about 10 years ago, which is reportedly well-controlled. [106, 118] The patient sees a neurologist, with the next appointment in June. [26, 81] Social History - Functional Status: The patient's mobil ity has significantly declined, progressing from using a cane to requiring a walker for all ambulation. [35] The patient is considered a fall risk and needs partner assistance to move in bed or get up to use the urinal at night. [24, 110, 124] - Caregiver a: The patient's partner is the primary caregiver and provides significant physical support. [24, 110] Results - Imaging: X-rays of the right hip perfo rmed by [facility] revealed no acute findings. [16] - Labs: Recent blood work shows the colby ent is anemic with macrocytosis. [61] [facility] Medical History (Updated 03/15/25 @ 08:18 by Casey Osorio MD) Macrocytic anemia Microcytic anemia Atrial fibrillation Parkinson's disease without dyskinesia Surgical History History of hip replacement H/O: vasectomy H/O inguinal hernia repair H/O cataract extraction Family History Father Diabetes Social History Housing: Condominium Alcohol intake: current Alcohol intake frequency: does not drink Patient Tobacco Use Status: Former Tobacco user e-Cigarette/Vaping Use: Never Used Second Hand Smoke Exposure: Yes service: No Current occupational status: retired Cognitive needs: Yes (Cane, Walker) Hearing needs: No Vision needs: Yes (Glasses) Questionnaire Thrive Questionnaire Date Thrive assessed: 10/04/24 I am a: Patient What is your living situation today?: I have a steady place to live Within the past 12 months, did the food you bought not last and you didn't have the money to get more?: Never true Within the past 12 months, did you worry whether your food would run out before you got money to buy more?: Never true Do you have trouble paying for medicines?: No Do you have trouble getting transportation to medical appointments?: No Do you have trouble paying your heating and electricity bill?: No Do you have trouble taking care of your child, family member or friend?: No Do you have trouble with day-to-day activities such as bathing, preparing meals, shopping, managing finances, etc.?: No Are you currently unemployed and looking for a job?: No Are you interested in more education?: No Please select the resources that you would like help with: None Currently or been in a relationship where the following occur: No concerns reported THRIVE Score: 0 CAROL-7 AMB Questionnaire CAROL-7 Date CAROL - 7 assessed: 10/11/24 Source: Developed by Drs. Rachid Skinner, Mare Padron, Papito Cheng and colleagues, with an educational cresencio from [employer] Review of Systems Narrative Review of Systems - Constitutional: Denies any recent change in general health. [6] - Musculoskeletal: Reports constant pain in the right leg, radiating from the hip down to the ankle. [7, 16, 30] - Neurological: Reports a history of night tremors. [22] - Gastrointestinal: Reports a history of black stools during a recent hospitalization. [62] Physical exam (Primary Care) Vital Signs: Last Vital Signs Temp 97.5 F 03/27/25 15:31 Pulse 60 03/27/25 15:31 BP 120/58 L 03/27/25 15:31 Pulse Ox 96 03/27/25 15:31 Oxygen Delivery Method Room Air 03/27/25 15:31 BMI result Body Mass Index 35.1 Tobacco/Smoking Status: Tobacco use Status Tobacco use date assessed 03/27/25 03/27/25 15:35 Patient Tobacco Use Status Former Tobacco user 03/27/25 15:35 e-Cigarette/Vaping Use Never Used 03/27/25 15:35 Thrive Assessment: Date of Thrive Assessment Date Thrive assessed 10/04/24 03/27/25 15:35 Currently or been in a relationship where the following occur: No concerns reported Narrative Physical Exam General: Appearance normal, both eyes and all related structures Nutritional Appearance: Well nourished Orientation/consciousness: Patient oriented x3 Limitations: Pain in the right hip extending down to the leg, worsened walking, requires a walker Head: Normal to inspection Neck: Normal visual inspection Chest: Normal palpation of entire chest wall Respiratory: Normal respiratory effort Neurology: Patient oriented x3, history of Parkinson's disease, taking rasagiline and trihexyphenidyl, no recent tremors noted Coding Level of Care Code Est Pt Level 4 (65744) Add On Problem Visit Only Diagnoses Atrial fibrillation I48.91 Assessment & Plan Assessment & Plan (1) Atrial fibrillation: Code(s): I48.91 - Unspecified atrial fibrillation Category: Medical Plan Plan - For the right leg pain, the patient will proceed with the MRI ordered by [facility]. [59, 133] A copy of the results is to be sent to this office. [135] For pain management, the patient will start with extra-strength Tylenol. [132, 137] A muscle relaxant was considered but deferred due to a potential interaction with the patient's rasagiline. [129, 131] - For the anemia, labs will be repeated, and a referral will be placed to a matologist for further evaluation. [64, 81, 140] - For atrial fibrillation, the patient will continue current management and follow up with a reactor service operator in August. [79, 80] - For Parkinson's disease, the patient will continue current medications and follow up with the neurologist in June. [81, 118] - For coordination of care, I will contact the patient's physical therapist and daughter to obtain more information about the patient's baseline functional status and health history. [83, 90, 140] Discussion Notes I discussed with the patient and the patient's partner the ongoing right leg pain. [56] I emphasized the need to proceed with the MRI ordered by their cam specialist to better understand the cause of the pain. [59, 133] I explained that while medications like muscle relaxants are an option for sciatic pain, there is a risk of interaction with the patient's current Parkinson's medication, rasagiline, so we will hold off on that for now. [129, 131] We discussed the significant drowsiness the patient experienced with gabapentin and the associated fall risk, and agreed to start with Tylenol for pain control. [110, 116, 132] I also reviewed the new diagnoses of anemia and atrial fibrillation that arose during the recent hospitalization. [60, 61] I informed them of the plan to refer to a upholsterer assembly line to investigate the cause of the anemia and to repeat blood work. [64, 81] We will continue with the scheduled follow-ups for cardiology and neurology. [80, 81] I mentioned that I will be reaching out to the patient's daughter and physical therapist to gather a more complete picture of the patient's baseline health to ensure comprehensive care. [83, 90] Patient Instructions - Take extra-strength Tylenol for your leg pain as discussed. [137] - Please schedule and complete the MRI that was ordered for you by the [facility] group. [133] - Notify our office once the MRI is done so we can review the results. [136] - We will be placing a referral for you to see a blood doctor (upholsterer assembly line) to look into your anemia. [64, 81] - Keep your scheduled appointment with your neurologist in June and your heart doctor in August. [80, 81] - Call our office to follow up after your MRI is completed. [138] Medications: Discontinued prednisone Discontinued Reason: Change Referral Type 5 mg PO DAILY 7 tabs 0RF
[2025-03-27 15:31] VITALS: BP 120/58; PULSE 60; TEMP 36.4; O2SAT 96; BMI 35.1
--- OUTSIDE RECORDS SUMMARY | 2025-03-27 18:05 | XMS_ITS | Clinical Summary ---
Author Organization [facility] Address [address] [place], [place] [id number] Phone Care Team Providers Care Surgical Garment Assembly Supervisor Name Role Phone Casey Osorio MD Primary [...] Encounters Date Type Department Care Team Description 03/25/2025 11:45 AM EST Home Care Visit [facility] [address] [place] [address] Rose Vega, PT PT HOME VISIT 03/22/2025 1:00 PM EST Home Care Visit [facility] [address] [place] [address] Rose Vega, PT PT HOME VISIT 03/20/2025 12:15 PM EST Home Care Visit [facility] [address] [place] [address] Sandi Euceda, RN SN HOME VISIT 03/19/2025 12:00 PM EST Home Care Visit [facility] [address] [place] [address] Lizeth Crump, OT OT HOME VISIT 03/18/2025 Episode Documentatio n Update [facility] [address] [place] [address] Heather Issa 03/15/2025 12:30 PM EST Home Care Visit [facility] [address] [place] [address] Rose Vega, PT PT HOME VISIT 03/14/2025 12:45 PM EST Home Care Visit [facility] [address] [place] [address] Sandi Euceda, RN SN HOME VISIT 03/14/2025 12:00 PM EST Home Care Visit [facility] [address] [place] [address] Lizeth Crump, OT OT HOME VISIT 03/12/2025 1:30 PM EST Home Care Visit [facility] [address] [place] [address] Megan Sanabria, PT PT EVALUATION 03/12/2025 1:00 PM EST Home Care Visit [facility] [address] [place] [phone] Sandi Euceda, LURDES SN HOME VISIT 03/12/2025 12:15 PM EST Home Care Visit [facility] [address] [place] [phone] Lizeth Crump, OT OT EVALUATION 03/11/2025 Home Care Visit [facility] [address] [place] [phone] Lizeth Crump, OT TELEPHONE ENCOUNTER 03/07/2025 12:30 PM EST Home Care Visit [facility] [address] [place] [phone] Carissa Calzada, LURDES SN OASIS START OF CARE (SOC) 03/07/2025 Plan of Care Documentation [facility] [address] [place] [phone] 02/22/2025 Orders Only [facility] [address] [place] [address] Homehealth, Interface ProviderMD 01/24/2025 1:50 PM EDT Office Visit [facility] [address] [address] Letitia Brennan, HORN PLAYER COVID-19 (Primary Dx); Fever, unspecified from Last [...] 12:00 PM EST Home Care Visit [facility] [address] [place] [phone] Sandi Euceda, RN [address] [place] [address] [email or web address] 03/28/2025 1:00 PM EST Home Care Visit [facility] [address] [place] [address] Lizeth Crump, OT [address] [place] [address] [email or web address] 04/01/2025 12:45 PM EST Home Care Visit [facility] [address] [place] [address] Rose Vega, PT [address] [place] [address] [email or web address] 04/02/2025 12:00 PM EST Home Care Visit [facility] [address] [place] [address] Lizeth Crump, OT [address] [place] [address] [email or web address] 04/03/2025 Home Care Visit [facility] [address] [place] [phone] Rose Vega, PT [address] [place] [address] 04/04/2025 1:00 AM EST Home Care Visit [facility] [address] [place] [phone] Sandi Euceda, LURDES [address] [place] [address] [email or web address] 04/05/2025 12:00 PM EST Home Care Visit [facility] [address] [place] [phone] Lizeth Crump, OT [address] [place] [address] [email or web address] 04/11/2025 Home Care Visit [facility] [address] [place] [phone] Sandi Euceda RN [address] [place] [address] [email or web address] 04/18/2025 1:00 AM EST Home Care Visit [facility] [address] [place] [phone] Sandi Euceda RN [address] [place] [address] [email or web address] 04/25/2025 12:30 AM EST Home Care Visit [facility] [address] [place] [phone] Sandi Euceda RN [address] [place] [address] [email or web address] 05/02/2025 12:30 AM EST Appointment [facility] [address] [place] [phone] Sandi Euceda RN [address] [place] [address] [email or web address] Health Maintenance Due Date Last Done Comments [...] DK YELLOW [facility] TURBIDITY Slightly Cloudy [facility] GLUCOSE, POCT Negative Negative [facility] KETONE, POCT 1+(A) Negative [facility] OCCULT BLOOD, POCT Negative Negative [facility] SPECIFIC GRAVITY, POCT 1.020 1.001 - 1.030 [facility] ALBUMIN, POCT 2+(A) Negative [facility] Bili Negative Negative [facility] Urobilinogen 0.2 <1.0 [facility] NITRITE, POCT Negative Negative [facility] PH, POCT 5.5 5.0 - 8.0 [facility] WBC SCREEN, POCT Negative Negative [facility] 01/24/2025 2:29 PM EDT 01/24/2025 2:32 PM EDT us Letitia Brennan HORN PLAYER LAB POCT ENTER/EDIT ORDERAB LES Final Result [facility] [address] [address], [facility] [phone] * (ABNORMAL) POCT COVID-19 RT-PCR/Influenza A & B/RSV (Cepheid) (01/24/2025 2:16 PM EDT) [facility] RSV PCR Negative Negative [facility] SARS-CoV-2 (COVID-19) Positive(A) Negative [facility] POC Influenza A PCR Negative Negative [facility] POC Influenza B PCR Negative Negative [facility] 01/24/2025 2:16 PM EDT 01/24/2025 2:56 PM EDT us Letitia Brennan HORN PLAYER LAB POCT ENTER/EDIT ORDERAB LES Final Result [facility] [address] [address], [facility] [phone] from Last 3 Months Insurance [employer] [place] MEDICARE PPO BLUE [place] [place] [address] MEDICARE PPO BLUE [place] [place] [address] MEDICARE PPO BLUE REPLACEMENT [facility] MEDICARE PPO BLUE [place] [place] [address] MEDICARE PPO BLUE REPLACEMENT [facility] MEDICARE PPO BLUE REPLACEMENT Care Teams Surgical Garment Assembly Supervisor Relationship Specialty Start Date End Date Casey Osorio MD [address] [place] [id number] PCP - General Internal Medicine 01/24/25 Additional Source Comments The information contained in this document represents components of the legal health record. It is not the complete legal health record.[facility]
== END 2025-03-27 16:49 | disposition home or self-care (01) ==
LOC: HO.HMCH 15:04
PROVIDERS: PCP Internal Medicine; Visit Provider Internal Medicine
DX: I48.91 Unspecified atrial fibrillation (principal)

== ENCOUNTER → 2025-03-27 15:03 | Outpatient (BNVA) | payer MEDICARE, SELFPAY | PROVIDERS: PCP Internal Medicine; Visit Provider Internal Medicine | DX: I48.91 Unspecified atrial fibrillation (principal); G20.A1 Parkinson's disease without dyskinesia, without mention of fluctuations; D50.9 Iron deficiency anemia, unspecified; D53.9 Nutritional anemia, unspecified; M79.604 Pain in right leg; Z87.891 Personal history of nicotine dependence | CPT/HCPCS: 99212 ==